=== PATIENT | female | born 1945 | race Caucasian/White ===

== ENCOUNTER → 2018-07-28 | Outpatient (CLI) | payer MEDICARE, BC ==
--- NOTE | 2018-07-28 16:28 | CT ---
EXAMINATION TYPE: CT chest w con DATE OF EXAM: 07/28/2018 COMPARISON: None HISTORY: abnormal cxr. hx of a-fib, asthma CT DLP: 508 mGycm Automated exposure control for dose reduction was used. CONTRAST: CT scan of the chest is performed with IV Contrast, patient injected with 100 mL of Isovue 300. FINDINGS: LUNGS: The lungs are grossly clear, there is no concerning parenchymal mass or nodule identified. T here is no pleural effusion or pneumothorax seen. The tracheobronchial tree is patent. Hyperinflatio n compatible with COPD. MEDIASTINUM: There are no greater than 1 cm hilar or mediastinal lymph nodes. No pericardial effusi on is seen. Thoracic aorta is of normal caliber. The heart is not enlarged. UPPER ABDOMEN: No significant abnormality appreciated. OTHER: No additional significant abnormality is seen. IMPRESSION: COPD otherwise unremarkable study.
== END | disposition home or self-care (01) ==
LOC: RADCTMAIN 15:14
PROVIDERS: ATTEND Internal Medicine
DX: J44.9 Chronic obstructive pulmonary disease, unspecified (principal)
CPT/HCPCS: 82565; 84520; 71260; 36415; Q9967

== ENCOUNTER 2020-01-24 07:26 | Day surgery (SDC) | payer MEDICARE, BC ==
[2020-01-21 11:12] VITALS: BMI 33.4
[~2020-01-24 07:26] MED LIST: SODIUM CHLORIDE 0.9% 1,000 ML IV SCH
[2020-01-24] MEDS ORDERED: CLINDAMYCIN 900 MG in DEXTROSE 5% IN WATER 50 ML IVPB ONE ×2 (07:30)
[2020-01-24] MEDS ORDERED: SODIUM CHLORIDE 0.9% 500 ML 500 ML IV ONE (08:03)
[2020-01-24 08:06] VITALS: RESP 16; TEMP 98
[2020-01-24] MEDS ORDERED: LIDOCAINE 1% INJ 10MG/ML (20 ML MDV) ONE (10:44)
[2020-01-24] MEDS ORDERED: IV FLUID CONTINUATION 1,000 ML IV ONE (10:53)
[2020-01-24] MEDS ORDERED: LIDOCAINE 1% INJ 10MG/ML (20 ML MDV) SQ ONE (11:00)
[2020-01-24] MEDS ORDERED: MIDAZOLAM 2 MG/2 ML VIAL IVP ONE (11:00)
[2020-01-24 12:54] VITALS: BP 123/74; PULSE 71
--- NOTE | 2020-01-24 17:39 | P.PCN ---
Preoperative Diagnosis: Diagnosis Recurrent presyncope and syncope History of pulmonary sarcoid History of paroxysmal atrial fibrillation History of systemic lupus and myasthenia gravis Twelve-lead EKG Sinus mechanism normal ND narrow QRS normal ST segments No delta waves no epsilon waves normal QT interval Tilt table test Baseline blood pressure 134/73 mmHg, Baseline heart rate 70 beats a minute Patient was tilted upright at an angle of 70 per protocol The patient had no symptoms, there was no change in heart rate and blood pressure At the end of the procedure she was laid supine Impression Normal twelve-lead ECG with normal cardiac intervals No evidence for dysautonomia No evidence for neurocardiogenic syncope Normal heart rate and blood pressure response to upright tilting Plan Proceed with implantation of a loop monitor
--- NOTE | 2020-01-24 17:40 | P.PRLE ---
RE: Kendra Hadley Dear Alexander Hadley has recurrent episodes of presyncope and syncope. She has known paroxysmal atrial fibrillation as well as pulmonary sarcoidosis I performed a tilt table test to evaluate for dysautonomia but she had a normal heart rate and blood pressure response to upright tilting. Therefore I proceed with implantation of a loop monitor to diagnoses the cause of her syncope I will send you a follow-up note if we detect any rhythm abnormalities that could explain her symptoms Thank you for entrusting me with the care of the patient Warm regards Sincerely Carlitos Short
--- NOTE | 2020-01-24 17:42 | P.PCN ---
Preoperative Diagnosis: Loop monitor implant Primary physicians: Dr. Alexander Duarte Biomedical Equipment Tech: Dr. Short Indication: Recurrent syncope and presyncope, normal tilt table test him a history of paroxysmal atrial fibrillation, history of pulmonary sarcoidosis Patient was brought to the EP lab in a fasting state. Written informed consent was obtained prior to the procedure. The left pectoral area was prepped and draped per protocol. Intravenous antibiotic was administered preoperatively. A subcutaneous Loop monitor was implanted successfully and the wound was closed per protocol. The device was programmed to detect significant bulmaro- arrhythmic and tachy-arrhythmic events, per protocol. Device and programming details: Syncope protocol Patient underwent EP procedure under conscious sedation/moderate sedation, monitoring of the level of consciousness and physiologic parameters including but not limited to vital signs and oxygenation. Patient tolerated the procedure well without any acute complications. Start time: 1059 Stop time: 1108
== END 2020-01-24 12:12 | disposition home or self-care (01) ==
LOC: CATHEP 07:26
PROVIDERS: ATTEND Internal Medicine Clinical Cardiac Electrophysiology
DX: R29.6 Repeated falls (principal); I48.0 Paroxysmal atrial fibrillation; M32.9 Systemic lupus erythematosus, unspecified; G70.00 Myasthenia gravis without (acute) exacerbation; D86.0 Sarcoidosis of lung; I10 Essential (primary) hypertension; E78.49 Other hyperlipidemia; Z82.49 Family history of ischemic heart disease and other diseases of the circulatory system; Z79.890 Hormone replacement therapy; Z79.01 Long term (current) use of anticoagulants; Z79.899 Other long term (current) drug therapy; Z88.5 Allergy status to narcotic agent; Z88.0 Allergy status to penicillin
CPT/HCPCS: 93660; 33285; C1764; J2250; J2001

== ENCOUNTER 2023-09-03 10:09 | Emergency (ER) | payer MEDICARE, OTHER ==
[2023-09-03 10:43] VITALS: TEMP 98.3
--- NOTE | 2023-09-03 10:44 | ED ---
General Adult HPI - General Chief complaint: Psychiatric Symptoms Stated complaint: Mental Health Time Seen by Provider: 09/03/23 10:15 Source: patient, RN notes reviewed, old records reviewed Mode of arrival: ambulatory Limitations: no limitations - History of Present Illness Initial comments: This is a 77-year-old female who presents to the emergency department because she wants to speak with someone from the psychiatric team. Patient states she has had her home taken away from her and she wants to prove that she is not mentally ill. Patient denies any homicidal or suicidal ideations. Patient denies seeing any abnormal findings. Patient denies any voices. Patient states she does not believe she was mentally ill. Patient states that she walked and she has been anxious and she has a lot of chest tightness. Patient has a history of atrial fibrillation is on Eliquis. Patient denies any difficulty breathing. Patient is any diaphoretic episode. Patient denies any heaviness or pressure she states is just a little bit of a tightness. Patient states she has had before. Patient denies any nausea or abdominal pain. - Related Data Home Medications Medication Instructions Recorded Confirmed Apixaban [Eliquis] 5 mg PO BID 01/21/20 09/03/23 DULoxetine HCL [Cymbalta] 30 mg PO HS 01/21/20 09/03/23 DULoxetine HCL [Cymbalta] 60 mg PO DAILY 01/21/20 09/03/23 Ivig 1 dose IV Q30D 01/21/20 09/03/23 Acetaminophen Tab [Tylenol Tab] 1,000 mg PO Q6HR PRN 09/03/23 09/03/23 Clopidogrel [Plavix] 75 mg PO DAILY 09/03/23 09/03/23 Fluticasone/Umeclidin/Vilanter 1 puff INHALATION RT-DAILY 09/03/23 09/03/23 [Trelegy Ellipta 200-62.5-25] HYDROcodone/APAP 5-325MG [[place] 0.5 tab PO BID PRN 09/03/23 09/03/23 5-325] Levothyroxine Sodium [Synthroid] 112 mcg PO AC-BRKFST 09/03/23 09/03/23 Metoprolol Tartrate [Lopressor] 25 mg PO TID 09/03/23 09/03/23 Pantoprazole [Protonix] 40 mg PO BID 09/03/23 09/03/23 Vit C/E/Zn/Coppr/Lutein/Zeaxan 2 cap PO DAILY 09/03/23 09/03/23 [Preservision Areds 2 Softgel] Allergies Allergy/AdvReac Type Severity Reaction Status Date / Time adhesive tape Allergy red Verified 09/03/23 12:26 skin,ok to use paper tape codeine Allergy Rash/Hives Verified 09/03/23 12:26 gabapentin Allergy tongue Verified 09/03/23 12:26 numbness Penicillins Allergy Rash/Hives Verified 09/03/23 12:26 quinine Allergy Unknown Verified 09/03/23 12:26 Sulfa (Sulfonamide Allergy Rash/Hives Verified 09/03/23 12:26 Antibiotics) aspirin AdvReac doesn't Verified 09/03/23 12:26 take with eliquis diphenhydramine AdvReac Unknown Verified 09/03/23 12:26 [From Benadryl] Review of Systems ROS Statement: Those systems with pertinent positive or pertinent negative responses have been documented in the HPI. ROS Other: All systems not noted in ROS Statement are negative. Past Medical History Past Medical History: Asthma, Respiratory Disorder, Syncope Additional Past Medical History / Comment(s): See Dr Short's H&P, [facility],admission approx September 2019 to [facility] pelvis after passing out with recent admission and discharge from [facility] on November or Dec 2019 ,Hx MYASTHENIA GRAVIS,LUPAS,SARCOID OF LUNG,AUTOIMMUME OF THE SKIN,HASHIMOTOS, 2 collapse vertabrae, urinary leakage. History of Any Multi-Drug Resistant Organisms: None Reported Past Surgical History: Cholecystectomy, Tonsillectomy Additional Past Surgical History / Comment(s): THROIDECTOMY, esophagus narrowing/had procedure to stretch jan 2018 Past Anesthesia/Blood Transfusion Reactions: Motion Sickness Past Psychological History: Depression Smoking Status: Never smoker - Past Family History Father Family Medical History: CVA/TIA Additional Family Medical History / Comment(s): at age 37 w/ CVA Mother Family Medical History: Congestive Heart Failure (CHF), Osteoarthritis (OA) Additional Family Medical History / Comment(s): at age 82 General Exam - General Exam Comments Initial Comments: GENERAL: Patient is well-developed and well-nourished. Patient is nontoxic and well- hydrated and is in no acute distress. ENT: Neck is soft and supple. No significant lymphadenopathy is noted. Oropharynx is clear. Moist mucous membranes. Neck has full range of motion without eliciting any pain. EYES: The sclera were anicteric and conjunctiva were pink and moist. Extraocular movements were intact and pupils were equal round and reactive to light. Eyelids were unremarkable. PULMONARY: Unlabored respirations. Good breath sounds bilaterally. No audible rales rhonchi or wheezing was noted. CARDIOVASCULAR: There is a regular rate and rhythm without any murmurs gallops or rubs. ABDOMEN: Soft and nontender with normal bowel sounds. SKIN: Skin is clear with no lesions or rashes and otherwise unremarkable. NEUROLOGIC: Patient is alert and oriented x3. Cranial nerves II through XII are grossly intact. Motor and sensory are also intact. Normal speech, volume and content. Symmetrical smile. MUSCULOSKELETAL: Normal extremities with adequate strength and full range of motion. LYMPHATICS: No significant lymphadenopathy is noted PSYCHIATRIC: Normal psychiatric evaluation. Limitations: no limitations Course Vital Signs 09/03/23 09/03/23 09/03/23 10:11 11:13 11:14 Temperature 98.3 F Pulse Rate 74 68 75 Respiratory 16 18 18 Rate Blood Pressure 137/71 126/68 126/68 O2 Sat by Pulse 95 94 L 95 Oximetry 09/03/23 09/03/23 09/03/23 11:30 12:00 12:30 Temperature Pulse Rate 68 65 68 Respiratory 22 18 Rate Blood Pressure 118/72 107/62 109/67 O2 Sat by Pulse Oximetry 09/03/23 09/03/23 13:00 13:30 Temperature Pulse Rate 70 71 Respiratory 18 17 Rate Blood Pressure 115/71 141/79 O2 Sat by Pulse 95 Oximetry Medical Decision Making - Medical Decision Making EKG is interpreted by myself read EKG shows a sinus rhythm at 65 bpm parables 176 QRS is 84 QT interval 389 QTc is 400. Patient's EKG shows no ST segment ovation or depression. Was pt. sent in by a medical professional or institution (, PA, [employer], urgent care, hospital, or group home...) When possible be specific @ -Patient was brought in by a business banking representative of the guardian Did you speak to anyone other than the patient for history (EMS, parent, family, police, friend...)? What history was obtained from this source @ -Manager Of Transportation regarding gave some of the history as did the patient Did you review nursing and triage notes (agree or disagree)? Why? @ -I reviewed and agree with nursing and triage notes Were old charts reviewed (outside hosp., previous admission, EMS record, old EKG, old radiological studies, urgent care reports/EKG's, group home records)? Report findings @ -No old charts were reviewed Differential Diagnosis (chest pain, altered mental status, abdominal pain women, abdominal pain men, vaginal bleeding, weakness, fever, dyspnea, syncope, headache, dizziness, GI bleed, back pain, seizure, CVA, palpatations, mental health, musculoskeletal)? @ -Differential Mental Health Depression, anxiety, bipolar, psychosis, schizophrenia, borderline personality, situational depression, adjustment disorder, behavioral disorder, brain tumor, malingering, substance abuse, encephalopathy, medication reaction, dementia, hypothyroidism, degenerative neurologic disorder, lupus.... This is not meant to be all-inclusive list EKG interpreted by me (3pts min.). @ -As above X-rays interpreted by me (1pt min.). @ -None done CT interpreted by me (1pt min.). @ -None done U/S interpreted by me (1pt. min.). @ -None done What testing was considered but not performed or refused? (CT, X-rays, U/S, labs)? Why? @ -None What meds were considered but not given or refused? Why? @ -None Did you discuss the management of the patient with other professionals (professionals i.e. , PA, [employer], lab, RT, psych nurse, social service manager, psychological operations specialist, teacher, special technical operations officer, spring encaser)? Give summary @ -I spoke with EPS. EPS agrees to patient to be discharged home. Was smoking cessation discussed for >3mins.? @ -No Was critical care preformed (if so, how long)? @ -No Were there social determinants of health that impacted care today? How? (Homelessness, low income, unemployed, alcoholism, drug addiction, transportation, low edu. Level, literacy, decrease access to med. care, penitentiary, rehab)? @ -No Was there de-escalation of care discussed even if they declined (Discuss DNR or withdrawal of care, Hospice)? DNR status @ -No What co-morbidities impacted this encounter? (DM, HTN, Smoking, COPD, CAD, Cancer, CVA, ARF, Chemo, Hep., AIDS, mental health diagnosis, sleep apnea, morbid obesity)? @ -None Was patient admitted / discharged? Hospital course, mention meds given and route, prescriptions, significant lab abnormalities, going to OR and other pertinent info. @ -Patient was initially evaluated by me and medically cleared her chest tightness resolved after her anxiety decreased she stated. Patient's evaluated by EPS and EPS with psychiatry determined the patient did not need to be a dmitted. Undiagnosed new problem with uncertain prognosis? @ -No Drug Therapy requiring intensive monitoring for toxicity (Heparin, Nitro, Insulin, Cardizem)? @ -No Were any procedures done? @ -No Diagnosis/symptom? @ -Chest tightness Acute, or Chronic, or Acute on Chronic? @ -Acute Uncomplicated (without systemic symptoms) or Complicated (systemic symptoms)? @ -Complicated Side effects of treatment? @ -No Exacerbation, Progression, or Severe Exacerbation? @ -No Poses a threat to life or bodily function? How? (Chest pain, [place], [place], pneumonia, PE, COPD, DKA, ARF, appy, cholecystitis, CVA, Diverticulitis, Homicidal, Suicidal, threat to staff... and all critical care pts) @ -No Diagnosis/symptom? @ -Normal psych evaluation Acute, or Chronic, or Acute on Chronic? @ -None Uncomplicated (without systemic symptoms) or Complicated (systemic symptoms)? @ -Uncomplicated Side effects of treatment? @ -None Exacerbation, Progression, or Severe Exacerbation] @ -No Poses a threat to life or bodily function? @ -No - Lab Data Result diagrams: 09/03/23 10:51 09/03/23 10:51 Lab Results 09/03/23 09/03/23 09/03/23 Range/Units 10:51 10:51 10:51 WBC 7.3 (3.8-10.6) k/uL RBC 4.18 (3.80-5.40) m/uL Hgb 12.1 (11.4-16.0) gm/dL Hct 38.0 (34.0-46.0) % MCV 91.1 (80.0-100.0) fL MCH 28.9 (25.0-35.0) pg MCHC 31.7 (31.0-37.0) g/dL RDW 14.4 (11.5-15.5) % Plt Count 246 (150-450) k/uL MPV 8.7 Neutrophils % 87 % Lymphocytes % 7 % Monocytes % 5 % Eosinophils % 0 % Basophils % 0 % Neutrophils # 6.3 (1.3-7.7) k/uL Lymphocytes # 0.5 L (1.0-4.8) k/uL Monocytes # 0.3 (0-1.0) k/uL Eosinophils # 0.0 (0-0.7) k/uL Basophils # 0.0 (0-0.2) k/uL PT 10.9 (10.0-12.5) sec INR 1.0 (<1.2) APTT 24.8 (22.0-30.0) sec Sodium (137-145) mmol/L Potassium (3.5-5.1) mmol/L Chloride (98-107) mmol/L Carbon Dioxide (22-30) mmol/L Anion Gap mmol/L BUN (7-17) mg/dL Creatinine (0.52-1.04) mg/dL Est GFR (CKD-EPI)AfAm (>60 ml/min/1.73 sqM) Est GFR (CKD-EPI)NonAf (>60 ml/min/1.73 sqM) Glucose (74-99) mg/dL Calcium (8.4-10.2) mg/dL Magnesium (1.6-2.3) mg/dL Total Bilirubin (0.2-1.3) mg/dL AST (14-36) U/L ALT (4-34) U/L Alkaline Phosphatase (38-126) U/L Troponin I (0.000-0.034) ng/mL Total Protein (6.3-8.2) g/dL Albumin (3.5-5.0) g/dL Urine Opiates Screen Not Detected (NotDetected) Ur Oxycodone Screen Not Detected (NotDetected) Urine Methadone Screen Not Detected (NotDetected) Ur Barbiturates Screen Not Detected (NotDetected) U Tricyclic Antidepress Not Detected (NotDetected) Ur Phencyclidine Scrn Not Detected (NotDetected) Ur Amphetamines Screen Not Detected (NotDetected) U Methamphetamines Scrn Not Detected (NotDetected) U Benzodiazepines Scrn Not Detected (NotDetected) Urine Cocaine Screen Not Detected (NotDetected) U Marijuana (THC) Screen Not Detected (NotDetected) 09/03/23 09/03/23 Range/Units 10:51 10:51 WBC (3.8-10.6) k/uL RBC (3.80-5.40) m/uL Hgb (11.4-16.0) gm/dL Hct (34.0-46.0) % MCV (80.0-100.0) fL MCH (25.0-35.0) pg MCHC (31.0-37.0) g/dL RDW (11.5-15.5) % Plt Count (150-450) k/uL MPV Neutrophils % % Lymphocytes % % Monocytes % % Eosinophils % % Basophils % % Neutrophils # (1.3-7.7) k/uL Lymphocytes # (1.0-4.8) k/uL Monocytes # (0-1.0) k/uL Eosinophils # (0-0.7) k/uL Basophils # (0-0.2) k/uL PT (10.0-12.5) sec INR (<1.2) APTT (22.0-30.0) sec Sodium 139 (137-145) mmol/L Potassium 4.6 (3.5-5.1) mmol/L Chloride 107 (98-107) mmol/L Carbon Dioxide 27 (22-30) mmol/L Anion Gap 5 mmol/L BUN 14 (7-17) mg/dL Creatinine 0.63 (0.52-1.04) mg/dL Est GFR (CKD-EPI)AfAm >90 (>60 ml/min/1.73 sqM) Est GFR (CKD-EPI)NonAf 86 (>60 ml/min/1.73 sqM) Glucose 99 (74-99) mg/dL Calcium 8.7 (8.4-10.2) mg/dL Magnesium 1.9 (1.6-2.3) mg/dL Total Bilirubin 0.4 (0.2-1.3) mg/dL AST 28 (14-36) U/L ALT 18 (4-34) U/L Alkaline Phosphatase 91 (38-126) U/L Troponin I <0.012 (0.000-0.034) ng/mL Total Protein 6.8 (6.3-8.2) g/dL Albumin 4.0 (3.5-5.0) g/dL Urine Opiates Screen (NotDetected) Ur Oxycodone Screen (NotDetected) Urine Methadone Screen (NotDetected) Ur Barbiturates Screen (NotDetected) U Tricyclic Antidepress (NotDetected) Ur Phencyclidine Scrn (NotDetected) Ur Amphetamines Screen (NotDetected) U Methamphetamines Scrn (NotDetected) U Benzodiazepines Scrn (NotDetected) Urine Cocaine Screen (NotDetected) U Marijuana (THC) Screen (NotDetected) Disposition Clinical Impression: Chest tightness, Evaluation by psychiatric service required Disposition: HOME SELF-CARE Condition: Good Instructions (If sedation given, give patient instructions): Anxiety (ED) Is patient prescribed a controlled substance at d/c from ED?: No Referrals: None,Stated [Primary Care Provider] - 1-2 days Time of Disposition: 14:46
[2023-09-03 11:17] LABS: Basophils % (A) 0 %; Eosinophils % (A) 0 %; HGB 12.1 gm/dL (11.4-16.0); Lymphocytes # (A) 0.5 k/uL (1.0-4.8); Lymphocytes % (A) 7 %; MCH 28.9 pg (25.0-35.0); MCHC 31.7 g/dL (31.0-37.0); MCV 91.1 fL (80.0-100.0); Mean Platelet Volume 8.7; Monocytes # (A) 0.3 k/uL (0-1.0); Monocytes % (A) 5 %; Neutrophils # (A) 6.3 k/uL (1.3-7.7); Neutrophils % (A) 87 %; Platelet Count 246 k/uL (150-450); RBC 4.18 m/uL (3.80-5.40); RDW 14.4 % (11.5-15.5); WBC 7.3 k/uL (3.8-10.6)
[2023-09-03 11:25] LABS: Partial Thromboplastin Time 24.8 sec (22.0-30.0); Prothrombin Time 10.9 sec (10.0-12.5)
[2023-09-03 11:27] LABS: ALT 18 U/L (4-34); AST 28 U/L (14-36); African American GFR (CKD) >90 (>60 ml/min/1.73 sqM); Alkaline Phosphatase 91 U/L (38-126); Anion Gap 5 mmol/L; Blood Urea Nitrogen 14 mg/dL (7-17); Calcium 8.7 mg/dL (8.4-10.2); Carbon Dioxide 27 mmol/L (22-30); Chloride 107 mmol/L (98-107); Glucose 99 mg/dL (74-99); Magnesium 1.9 mg/dL (1.6-2.3); Non-African American GFR(CKD) 86 (>60 ml/min/1.73 sqM); Potassium 4.6 mmol/L (3.5-5.1); Sodium 139 mmol/L (137-145); Total Bilirubin 0.4 mg/dL (0.2-1.3); Total Protein 6.8 g/dL (6.3-8.2)
--- NOTE | 2023-09-03 11:27 | XR ---
EXAMINATION TYPE: XR chest 2V DATE OF EXAM: 09/03/2023 COMPARISON: 04/17/2016 TECHNIQUE: PA and lateral views submitted. HISTORY: Chest pain FINDINGS: The lungs are clear and there is no pneumothorax, pleural effusion, or focal pneumonia. Heart size normal and no overt failure. Osseous structures demonstrate hypertrophic and degenerative changes of the spine. Loop recorder device is seen and there are subsegmental changes at both lung bases. Diffus e osteopenia and arthropathy of the shoulders. Severe compression deformity thoracolumbar spine with vertebroplasty. Underlying COPD suspected. IMPRESSION: 1. No acute process.
[2023-09-03 11:50] LABS: Amphetamine Screen,Urine Not Detected (NotDetected); Barbiturate Screen,Urine Not Detected (NotDetected); Benzodiazepines Screen,Urine Not Detected (NotDetected); Cocaine Screen,Urine Not Detected (NotDetected); Methadone Screen, Urine Not Detected (NotDetected); Opiate Screen,Urine Not Detected (NotDetected); Oxycodone Screen, Urine Not Detected (NotDetected); Phencyclidine Screen,Urine Not Detected (NotDetected); Tricyclic Antidepressant,Urine Not Detected (NotDetected); Urn Cannabinoid Scrn Not Detected (NotDetected)
[2023-09-03 15:13] VITALS: BP 117/91; PULSE 70; RESP 18
== END 2023-09-03 15:11 | disposition home or self-care (01) ==
LOC: EC 10:09
DX: Z13.39 Encounter for screening examination for other mental health and behavioral disorders (principal); R07.89 Other chest pain; I48.91 Unspecified atrial fibrillation; Z79.01 Long term (current) use of anticoagulants; Z88.0 Allergy status to penicillin; Z88.5 Allergy status to narcotic agent; Z88.8 Allergy status to other drugs, medicaments and biological substances; Z88.2 Allergy status to sulfonamides; Z88.6 Allergy status to analgesic agent; Z91.09 Other allergy status, other than to drugs and biological substances
CPT/HCPCS: 36415; 71046; 80053; 80306; 82075; 83735; 84484; 85025; 85610; 85730; 93005; 99285

== ENCOUNTER 2023-09-04 12:01 | Emergency (ER) | payer MEDICARE, OTHER ==
[2023-09-04] MEDS: METOPROLOL TARTRATE 25 MG TAB PO STA (12:33)
--- NOTE | 2023-09-04 12:38 | ED ---
General Adult HPI - General Chief complaint: Dizziness Stated complaint: Chest pain Time Seen by Provider: 09/04/23 12:05 Source: patient, RN notes reviewed, old records reviewed Mode of arrival: wheelchair Limitations: physical limitation - History of Present Illness Initial comments: This is a 77-year-old female presents to the emergency department stating that she was in the emergency department yesterday and no one tested her urine and she has a little discomfort when she urinates that she would like it tested. Patient also states she thinks she left her blood pressure medications here but no one can find them and so she does not feel right when she does not have her blood pressure medications. Patient states her heart rate is a little faster than normal because she does not have her blood pressure medications. Patient states she takes Lopressor 25 mg 3 times daily. Patient denies any chest pain patient denies any difficulty breathing shortness of breath. Patient has any recent fever chills or cough or patient has any abdominal pain patient has nausea vomiting diarrhea. Patient states she does not really feel dizzy but she does not feel right because she did not take her medicines - Related Data Home Medications Medication Instructions Recorded Confirmed Apixaban [Eliquis] 5 mg PO BID 01/21/20 09/04/23 DULoxetine HCL [Cymbalta] 30 mg PO HS 01/21/20 09/04/23 DULoxetine HCL [Cymbalta] 60 mg PO DAILY 01/21/20 09/04/23 Ivig 1 dose IV Q30D 01/21/20 09/04/23 Acetaminophen Tab [Tylenol Tab] 1,000 mg PO Q6HR PRN 09/03/23 09/04/23 Clopidogrel [Plavix] 75 mg PO DAILY 09/03/23 09/04/23 Fluticasone/Umeclidin/Vilanter 1 puff INHALATION RT-DAILY 09/03/23 09/04/23 [Trelegy Ellipta 200-62.5-25] HYDROcodone/APAP 5-325MG [[place] 0.5 tab PO BID PRN 09/03/23 09/04/23 5-325] Levothyroxine Sodium [Synthroid] 112 mcg PO AC-BRKFST 09/03/23 09/04/23 Metoprolol Tartrate [Lopressor] 25 mg PO TID 09/03/23 09/04/23 Pantoprazole [Protonix] 40 mg PO BID 09/03/23 09/04/23 Vit C/E/Zn/Coppr/Lutein/Zeaxan 2 cap PO DAILY 09/03/23 09/04/23 [Preservision Areds 2 Softgel] Previous Rx's Medication Instructions Recorded Metoprolol Tartrate [Lopressor] 25 mg PO TID #90 tablet 09/04/23 Allergies Allergy/AdvReac Type Severity Reaction Status Date / Time adhesive tape Allergy red Verified 09/04/23 12:57 skin,ok to use paper tape codeine Allergy Rash/Hives Verified 09/04/23 12:57 gabapentin Allergy tongue Verified 09/04/23 12:57 numbness Penicillins Allergy Rash/Hives Verified 09/04/23 12:57 quinine Allergy Unknown Verified 09/04/23 12:57 Sulfa (Sulfonamide Allergy Rash/Hives Verified 09/04/23 12:57 Antibiotics) aspirin AdvReac doesn't Verified 09/04/23 12:57 take with eliquis diphenhydramine AdvReac Unknown Verified 09/04/23 12:57 [From Benadryl] Review of Systems ROS Statement: Those systems with pertinent positive or pertinent negative responses have been documented in the HPI. ROS Other: All systems not noted in ROS Statement are negative. Past Medical History Past Medical History: Asthma, Respiratory Disorder, Syncope Additional Past Medical History / Comment(s): See Dr Short's H&P, [facility],admission approx September 2019 to [facility] pelvis after passing out with recent admission and discharge from [facility] on November or Dec 2019 ,Hx MYASTHENIA GRAVIS,LUPAS,SARCOID OF LUNG,AUTOIMMUME OF THE SKIN,HASHIMOTOS, 2 collapse vertabrae, urinary leakage. History of Any Multi-Drug Resistant Organisms: None Reported Past Surgical History: Cholecystectomy, Tonsillectomy Additional Past Surgical History / Comment(s): THROIDECTOMY, esophagus narrowing/had procedure to stretch jan 2018 Past Anesthesia/Blood Transfusion Reactions: Motion Sickness Past Psychological History: Depression Smoking Status: Never smoker - Past Family History Father Family Medical History: CVA/TIA Additional Family Medical History / Comment(s): at age 37 w/ CVA Mother Family Medical History: Congestive Heart Failure (CHF), Osteoarthritis (OA) Additional Family Medical History / Comment(s): at age 82 General Exam - General Exam Comments Initial Comments: GENERAL: Patient is well-developed and well-nourished. Patient is nontoxic and well- hydrated and is in mild distress. ENT: Neck is soft and supple. No significant lymphadenopathy is noted. Oropharynx is clear. Moist mucous membranes. Neck has full range of motion without eliciting any pain. EYES: The sclera were anicteric and conjunctiva were pink and moist. Extraocular movements were intact and pupils were equal round and reactive to light. Eyelids were unremarkable. PULMONARY: Unlabored respirations. Good breath sounds bilaterally. No audible rales r honchi or wheezing was noted. CARDIOVASCULAR: There is a regular rate and rhythm without any murmurs gallops or rubs. ABDOMEN: Soft and nontender with normal bowel sounds. SKIN: Skin is clear with no lesions or rashes and otherwise unremarkable. NEUROLOGIC: Patient is alert and oriented x3. Cranial nerves II through XII are grossly intact. Motor and sensory are also intact. Normal speech, volume and content. Symmetrical smile. MUSCULOSKELETAL: Normal extremities with adequate strength and full range of motion. LYMPHATICS: No significant lymphadenopathy is noted PSYCHIATRIC: Normal psychiatric evaluation. Limitations: physical limitation Course Vital Signs 09/04/23 09/04/23 09/04/23 12:03 12:27 12:32 Temperature 97.5 F L Pulse Rate 101 H 85 Pulse Rate [ 92 Roller Mechanic ] Respiratory 16 18 Rate Blood Pressure 144/79 139/89 O2 Sat by Pulse 97 98 Oximetry Medical Decision Making - Medical Decision Making EKG is interpreted by myself but EKG is a sinus rhythm at 79 bpm WI 168 QRS is 86 QT interval 352 QTc is 387. Patient's EKG shows no ST segment ovation or depression. Was pt. sent in by a medical professional or institution (, PA, CERTIFIED INDUSTRIAL HYGIENIST, urgent care, hospital, or custodial...) When possible be specific @ -No Did you speak to anyone other than the patient for history (EMS, parent, family, police, friend...)? What history was obtained from this source @ -No Did you review nursing and triage notes (agree or disagree)? Why? @ -I reviewed and agree with nursing and triage notes Were old charts reviewed (outside hosp., previous admission, EMS record, old EKG, old radiological studies, urgent care reports/EKG's, custodial records)? Report findings @ -I reviewed yesterday's chart and lab work. It showed no acute abnormalities I did compare today's EKG with yesterday's EKG there was no new changes. Differential Diagnosis (chest pain, altered mental status, abdominal pain women, abdominal pain men, vaginal bleeding, weakness, fever, dyspnea, syncope, headache, dizziness, GI bleed, back pain, seizure, CVA, palpatations, mental health, musculoskeletal)? @ -Tachycardia, anxiety, noncompliant with meds, urinary tract infection, this is not an all-inclusive list EKG interpreted by me (3pts min.). @ -As above X-rays interpreted by me (1pt min.). @ -None done CT interpreted by me (1pt min.). @ -None done U/S interpreted by me (1pt. min.). @ -None done What testing was considered but not performed or refused? (CT, X-rays, U/S, labs)? Why? @ -None What meds were considered but not given or refused? Why? @ -None Did you discuss the management of the patient with other professionals (professionals i.e. , PA, CERTIFIED INDUSTRIAL HYGIENIST, lab, RT, psych nurse, social and political studies professor, attorney lawyer, teacher, animal park code enforcement officer, manager of case)? Give summary @ -No Was smoking cessation discussed for >3mins.? @ -No Was critical care preformed (if so, how long)? @ -No Were there social determinants of health that impacted care today? How? (Homelessness, low income, unemployed, alcoholism, drug addiction, transportatio n, low edu. Level, literacy, decrease access to med. care, fci, rehab)? @ -No Was there de-escalation of care discussed even if they declined (Discuss DNR or withdrawal of care, Hospice)? DNR status @ -No What co-morbidities impacted this encounter? (DM, HTN, Smoking, COPD, CAD, Cancer, CVA, ARF, Chemo, Hep., AIDS, mental health diagnosis, sleep apnea, morbid obesity)? @ -None Was patient admitted / discharged? Hospital course, mention meds given and route, prescriptions, significant lab abnormalities, going to OR and other pertinent info. @ -Patient was given metoprolol 25 mg. Patient will be given a prescription to go home with. Patient has no symptoms at this time. Patient's urine showed no infection. Undiagnosed new problem with uncertain prognosis? @ -No Drug Therapy requiring intensive monitoring for toxicity (Heparin, Nitro, Insulin, Cardizem)? @ -No Were any procedures done? @ -No Diagnosis/symptom? @ -Hypertension Acute, or Chronic, or Acute on Chronic? @ -Chronic Uncomplicated (without systemic symptoms) or Complicated (systemic symptoms)? @ -Uncomplicated Side effects of treatment? @ -No Exacerbation, Progression, or Severe Exacerbation? @ -No Poses a threat to life or bodily function? How? (Chest pain, [place], [place], pneumonia, PE, COPD, DKA, ARF, appy, cholecystitis, CVA, Diverticulitis, Homicidal, Suicidal, threat to staff... and all critical care pts) @ -No - Lab Data Lab Results 09/04/23 Range/Units 12:31 Urine Color Light Yellow Urine Appearance Clear (Clear) Urine pH 6.0 (5.0-8.0) Ur Specific [place] 1.017 (1.001-1.035) Urine Protein Negative (Negative) Urine Glucose (UA) Negative (Negative) Urine Ketones Negative (Negative) Urine Blood Negative (Negative) Urine Nitrite Negative (Negative) Urine Bilirubin Negative (Negative) Urine Urobilinogen <2.0 (<2.0) mg/dL Ur Leukocyte Esterase Small H (Negative) Urine RBC <1 (0-5) /hpf Urine WBC 3 (0-5) /hpf Urine Mucus Rare H (None) /hpf Disposition Clinical Impression: Dysuria, Hypertension Disposition: HOME SELF-CARE Condition: Good Instructions (If sedation given, give patient instructions): Hypertension (ED) Prescriptions: Metoprolol Tartrate [Lopressor] 25 mg PO TID #90 tablet Is patient prescribed a controlled substance at d/c from ED?: No Referrals: None,Stated [Primary Care Provider] - 1-2 days Time of Disposition: 14:09
[2023-09-04 12:41] LABS: Appearance,Urine Clear (Clear); Bilirubin,Urine Negative (Negative); Blood,Urine Negative (Negative); Color,Urine Light Yellow; Glucose,Urine (UA) Negative (Negative); Ketones,Urine Negative (Negative); Leukocyte Esterase,Urine Small (Negative); Mucus,Urine Rare /hpf; Nitrite,Urine Negative (Negative); Protein,Urine Negative (Negative); RBC,Urine <1 /hpf (0-5); Specific Gravity,Urine 1.017 (1.001-1.035); Urobilinogen,Urine <2.0 mg/dL (<2.0); WBC,Urine 3 /hpf (0-5)
[2023-09-04 13:07] VITALS: RESP 18
[2023-09-04 17:18] VITALS: BP 134/76; PULSE 78; TEMP 98
== END 2023-09-04 15:00 | disposition home or self-care (01) ==
LOC: EC 12:01
DX: I10 Essential (primary) hypertension (principal); R30.0 Dysuria; Z88.5 Allergy status to narcotic agent; Z88.0 Allergy status to penicillin; Z88.2 Allergy status to sulfonamides; Z88.8 Allergy status to other drugs, medicaments and biological substances
CPT/HCPCS: 81001; 93005; 99284

== ENCOUNTER 2023-09-19 19:41 | Observation (INO) | payer MEDICARE, OTHER ==
--- NOTE | 2023-09-19 20:51 | ED ---
General Adult HPI - General Source: patient Mode of arrival: ambulatory Limitations: no limitations <Imelda Bell - Last Filed: 09/19/23 20:50> <Arley Steele - Last Filed: 09/20/23 02:50> - General Stated complaint: weakness Time Seen by Provider: 09/19/23 20:50 - History of Present Illness Initial comments: 77-year-old female presenting with chief complaint of nausea vomiting and weakness. She is concerned that this is a flare up of her myasthenia gravis. (Imelda Bell) Dictation was produced using TEE[employer] dictation software. please excuse any grammatical, word or spelling errors. Chief Complaint: 77-year-old female with history of myasthenia's gravis presents to the emergency department for concerns of gravis attack History of Present Illness: 69-year-old female was recently seen in the em ergency department. Patient allegedly was here recently for diarrhea. She is discharged home. Patient returns to the emergency department because she is worried she is having another myasthenia gravis attack. States that she is always admitted at [facility] every time she shows up. She has had IVIG in the past. Patient feels like she is having a myasthenia gravis attack because she feels like her left eye is droopy. Patient has no other complaints at this time. The ROS documented in this emergency department record has been reviewed and confirmed by me. Those systems with pertinent positive or negative responses have been documented in the HPI. All other systems are other negative and/or noncontributory. (Arley Steele) - Related Data Home Medications Medication Instructions Recorded Confirmed Apixaban [Eliquis] 5 mg PO BID 01/21/20 09/04/23 DULoxetine HCL [Cymbalta] 30 mg PO HS 01/21/20 09/04/23 DULoxetine HCL [Cymbalta] 60 mg PO DAILY 01/21/20 09/04/23 Ivig 1 dose IV Q30D 01/21/20 09/04/23 Acetaminophen Tab [Tylenol Tab] 1,000 mg PO Q6HR PRN 09/03/23 09/04/23 Clopidogrel [Plavix] 75 mg PO DAILY 09/03/23 09/04/23 Fluticasone/Umeclidin/Vilanter 1 puff INHALATION RT-DAILY 09/03/23 09/04/23 [Trelegy Ellipta 200-62.5-25] HYDROcodone/APAP 5-325MG [[place] 0.5 tab PO BID PRN 09/03/23 09/04/23 5-325] Levothyroxine Sodium [Synthroid] 112 mcg PO AC-BRKFST 09/03/23 09/04/23 Metoprolol Tartrate [Lopressor] 25 mg PO TID 09/03/23 09/04/23 Pantoprazole [Protonix] 40 mg PO BID 09/03/23 09/04/23 Vit C/E/Zn/Coppr/Lutein/Zeaxan 2 cap PO DAILY 09/03/23 09/04/23 [Preservision Areds 2 Softgel] Previous Rx's Medication Instructions Recorded Metoprolol Tartrate [Lopressor] 25 mg PO TID #90 tablet 09/04/23 Allergies Allergy/AdvReac Type Severity Reaction Status Date / Time adhesive tape Allergy red Verified 09/19/23 20:53 skin,ok to use paper tape codeine Allergy Rash/Hives Verified 09/19/23 20:53 gabapentin Allergy tongue Verified 09/19/23 20:53 numbness Penicillins Allergy Rash/Hives Verified 09/19/23 20:53 quinine Allergy Unknown Verified 09/19/23 20:53 Sulfa (Sulfonamide Allergy Rash/Hives Verified 09/19/23 20:53 Antibiotics) aspirin AdvReac doesn't Verified 09/19/23 20:53 take with eliquis digoxin AdvReac Rapid Verified 09/19/23 20:53 Heart Rate diphenhydramine AdvReac Unknown Verified 09/19/23 20:53 [From Benadryl] Review of Systems ROS Other: All systems not noted in ROS Statement are negative. <Imelda Bell - Last Filed: 09/19/23 20:50> ROS Other: All systems not noted in ROS Statement are negative. <Arley Steele - Last Filed: 09/20/23 02:50> ROS Statement: Those systems with pertinent positive or pertinent negative responses have been documented in the HPI. Past Medical History Past Medical History: Asthma, Respiratory Disorder, Syncope Additional Past Medical History / Comment(s): See Dr Short's H&P, marcello falls,admission approx September 2019 to [facility] pelvis after passing out with recent admission and discharge from [facility] on November or Dec 2019 ,Hx MYASTHENIA GRAVIS,LUPAS,SARCOID OF LUNG,AUTOIMMUME OF THE SKIN,HASHIMOTOS, 2 collapse vertabrae, urinary leakage. History of Any Multi-Drug Resistant Organisms: None Reported Past Surgical History: Cholecystectomy, Tonsillectomy Additional Past Surgical History / Comment(s): THROIDECTOMY, esophagus narrowing/had procedure to stretch jan 2018 Past Anesthesia/Blood Transfusion Reactions: Motion Sickness Past Psychological History: Depression Smoking Status: Never smoker - Past Family History Father Family Medical History: CVA/TIA Additional Family Medical History / Comment(s): at age 37 w/ CVA Mother Family Medical History: Congestive Heart Failure (CHF), Osteoarthritis (OA) Additional Family Medical History / Comment(s): at age 82 <Imelda Bell - Last Filed: 09/19/23 20:50> General Exam <Imelda Bell - Last Filed: 09/19/23 20:50> <Arley Steele - Last Filed: 09/20/23 02:50> - General Exam Comments Initial Comments: Visual Physical Exam Vital signs reviewed General: Well-appearing, nontoxic, no acute distress. Head: Normocephalic, atraumatic Eyes: PERRLA, EOMI ENT: Airway patent Chest: Nonlabored breathing Skin: No visual rash, normal skin tone Neuro: Alert and oriented 3 Musculoskeletal: No gross abnormalities (Imelda Bell) PHYSICAL EXAM: General Impression: Alert and oriented x3, not in acute distress HEENT: Normocephalic atraumatic, extra-ocular movements intact, pupils equal and reactive to light bilaterally, mucous membranes moist. Cardiovascular: Heart regular rate and rhythm Chest: Able to complete full sentences, no retractions, no tachypnea Abdomen: abdomen soft, non-tender, non-distended, no organomegaly Musculoskeletal: Pulses present and equal in all extremities, no peripheral edema Motor: no focal deficits noted Neurological: CN II-XII grossly intact, no focal motor or sensory deficits noted Skin: Intact with no visualized rashes Psych: Normal affect and mood (Arley Steele) Course Vital Signs 09/19/23 09/19/23 09/20/23 20:49 22:53 01:49 Temperature 97.7 F 97.9 F Pulse Rate 111 H 69 87 Respiratory 18 18 17 Rate Blood Pressure 127/82 121/72 97/70 O2 Sat by Pulse 96 98 96 Oximetry Medical Decision Making <Imelda Bell - Last Filed: 09/19/23 20:50> - Lab Data Result diagrams: 09/19/23 22:53 09/19/23 22:53 <Arley Steele - Last Filed: 09/20/23 02:50> - Medical Decision Making I performed the quick note portion of this visit, electronically signed Imelda Bell PA-C (Imelda Bell) Was pt. sent in by a medical professional or institution (GHULAM Arredondo, FIRE EQUIPMENT OPERATOR, urgent care, hospital, or long-term...) When possible be specific @ -No Did you speak to anyone other than the patient for history (EMS, parent, family, police, friend...)? What history was obtained from this source @ -No Did you review nursing and triage notes (agree or disagree)? Why? @ -I reviewed and agree with nursing and triage notes Were old charts reviewed (outside hosp., previous admission, EMS record, old EKG, old radiological studies, urgent care reports/EKG's, long-term records)? Report findings @ -No old charts were reviewed Differential Diagnosis (chest pain, altered mental status, abdominal pain women, abdominal pain men, vaginal bleeding, musculoskeletal, weakness, fever, dyspnea, syncope, headache, dizziness, GI bleed, back pain, seizure, CVA, palpatations, mental health)? @ -Differential Weakness: Hypoglycemia, shock, sepsis, hyponatremia, anemia, infection, CT, ETOH, adverse medicine reaction, overdose, stroke, this is not meant to be an all-inclusive li st. EKG interpreted by me (3pts min.). @ -My EKG interpretation: Ventricular rate 92, sinus rhythm,. 175, QRS 86, QTc 4 2. No IA prolongation, no QTC prolongation, no ST or T-wave changes noted. O prasad, this EKG is unremarkable X-rays interpreted by me (1pt min.). @ -Chest x-ray shows no acute processes CT interpreted by me (1pt min.). @ -None done U/S interpreted by me (1pt. min.). @ -None done What testing was considered but not performed or refused? (CT, X-rays, U/S, labs)? Why? @ -None What meds were considered but not given or refused? Why? @ -None Did you discuss the management of the patient with other professionals (professionals i.e. , PA, FIRE EQUIPMENT OPERATOR, lab, RT, psych nurse, criminal justice social worker, agriculture consultant, teacher, ordnance officer, housing case manager)? Give summary @ -Case discussed with hospitalist for admission Was smoking cessation discussed for >3mins.? @ -No Was critical care preformed (if so, how long)? @ -No Were there social determinants of health that impacted care today? How? (Homelessness, low income, unemployed, alcoholism, drug addiction, transportation, low edu. Level, literacy, decrease access to med. care, fdc, rehab)? @ -No Was there de-escalation of care discussed even if they declined (Discuss DNR or withdrawal of care, Hospice)? DNR status @ -No What co-morbidities impacted this encounter? (DM, HTN, Smoking, COPD, CAD, Cancer, CVA, ARF, Chemo, Hep., AIDS, mental health diagnosis, sleep apnea, morbid obesity)? @ -None Was patient admitted / discharged? Hospital course, mention meds given and route, prescriptions, significant lab abnormalities, going to OR and other pertinent info. @ -77-year-old female presents emergency department for concerns of myasthenia gravis exacerbation. Patient does not feel well enough to go home. Vital signs upon arrival are within acceptable limits. Laboratory evaluation is obtained. CBC, metabolic panel was unremarkable. Urinalysis shows urinary tract infection. Patient reevaluated bedside found to be in stable condition. Patient does not feel safe to be discharged. She would prefer to be admitted. Patient admitted observation consultation to neurology for evaluation of patient's alleged myasthenia gravis Undiagnosed new problem with uncertain prognosis? @ -No Drug Therapy requiring intensive monitoring for toxicity (Heparin, Nitro, Insulin, Cardizem)? @ -No Were any procedures done? @ -No Diagnosis/symptom? Acute, or Chronic, or Acute on Chronic? Uncomplicated (without systemic symptoms) or Complicated (systemic symptoms)? @ -UTI Side effects of treatment? @ -No Exacerbation, Progression, or Severe Exacerbation? @ -No Poses a threat to life or bodily function? How? (Chest pain, USA, CT, pneumonia, PE, COPD, DKA, ARF, appy, cholecystitis, CVA, Diverticulitis, Homicidal, Suicidal, threat to staff... and all critical care pts) @ -No (Arley Steele) - Lab Data Lab Results 09/19/23 09/19/23 09/19/23 Range/Units 22:53 22:53 22:53 WBC 6.1 (3.8-10.6) k/uL RBC 4.71 (3.80-5.40) m/uL Hgb 13.7 (11.4-16.0) gm/dL Hct 42.5 (34.0-46.0) % MCV 90.1 (80.0-100.0) fL MCH 29.1 (25.0-35.0) pg MCHC 32.3 (31.0-37.0) g/dL RDW 14.5 (11.5-15.5) % Plt Count 237 (150-450) k/uL MPV 9.0 Neutrophils % 80 % Lymphocytes % 11 % Monocytes % 7 % Eosinophils % 0 % Basophils % 0 % Neutrophils # 4.9 (1.3-7.7) k/uL Lymphocytes # 0.7 L (1.0-4.8) k/uL Monocytes # 0.4 (0-1.0) k/uL Eosinophils # 0.0 (0-0.7) k/uL Basophils # 0.0 (0-0.2) k/uL PT 10.9 (10.0-12.5) sec INR 1.0 (<1.2) APTT 28.1 (22.0-30.0) sec Sodium 138 (137-145) mmol/L Potassium 3.8 (3.5-5.1) mmol/L Chloride 104 (98-107) mmol/L Carbon Dioxide 25 (22-30) mmol/L Anion Gap 9 mmol/L BUN 11 (7-17) mg/dL Creatinine 0.71 (0.52-1.04) mg/dL Est GFR (CKD-EPI)AfAm >90 (>60 ml/min/1.73 sqM) Est GFR (CKD-EPI)NonAf 82 (>60 ml/min/1.73 sqM) Glucose 94 (74-99) mg/dL Plasma Lactic Acid Stevie (0.7-2.0) mmol/L Calcium 8.8 (8.4-10.2) mg/dL Magnesium 1.8 (1.6-2.3) mg/dL Total Bilirubin 0.5 (0.2-1.3) mg/dL AST 43 H (14-36) U/L ALT 36 H (4-34) U/L Alkaline Phosphatase 84 (38-126) U/L Total Protein 7.3 (6.3-8.2) g/dL Albumin 4.3 (3.5-5.0) g/dL TSH (0.465-4.680) mIU/L Free T4 (0.78-2.19) ng/dL Urine Color Urine Appearance (Clear) Urine pH (5.0-8.0) Ur Specific Mead (1.001-1.035) Urine Protein (Negative) Urine Glucose (UA) (Negative) Urine Ketones (Negative) Urine Blood (Negative) Urine Nitrite (Negative) Urine Bilirubin (Negative) Urine Urobilinogen (<2.0) mg/dL Ur Leukocyte Esterase (Negative) Urine RBC (0-5) /hpf Urine WBC (0-5) /hpf Urine WBC Clumps (None) /hpf Ur Squamous Epith Cells (0-4) /hpf Amorphous Sediment (None) /hpf Urine Bacteria (None) /hpf Hyaline Casts (0-2) /lpf Urine Mucus (None) /hpf Urine Yeast (Budding) (None) /hpf 09/19/23 09/19/23 09/20/23 Range/Units 22:53 22:53 02:10 WBC (3.8-10.6) k/uL RBC (3.80-5.40) m/uL Hgb (11.4-16.0) gm/dL Hct (34.0-46.0) % MCV (80.0-100.0) fL MCH (25.0-35.0) pg MCHC (31.0-37.0) g/dL RDW (11.5-15.5) % Plt Count (150-450) k/uL MPV Neutrophils % % Lymphocytes % % Monocytes % % Eosinophils % % Basophils % % Neutrophils # (1.3-7.7) k/uL Lymphocytes # (1.0-4.8) k/uL Monocytes # (0-1.0) k/uL Eosinophils # (0-0.7) k/uL Basophils # (0-0.2) k/uL PT (10.0-12.5) sec INR (<1.2) APTT (22.0-30.0) sec Sodium (137-145) mmol/L Potassium (3.5-5.1) mmol/L Chloride (98-107) mmol/L Carbon Dioxide (22-30) mmol/L Anion Gap mmol/L BUN (7-17) mg/dL Creatinine (0.52-1.04) mg/dL Est GFR (CKD-EPI)AfAm (>60 ml/min/1.73 sqM) Est GFR (CKD-EPI)NonAf (>60 ml/min/1.73 sqM) Glucose (74-99) mg/dL Plasma Lactic Acid Stevie 1.0 (0.7-2.0) mmol/L Calcium (8.4-10.2) mg/dL Magnesium (1.6-2.3) mg/dL Total Bilirubin (0.2-1.3) mg/dL AST (14-36) U/L ALT (4-34) U/L Alkaline Phosphatase (38-126) U/L Total Protein (6.3-8.2) g/dL Albumin (3.5-5.0) g/dL TSH 6.450 H (0.465-4.680) mIU/L Free T4 1.60 (0.78-2.19) ng/dL Urine Color Yellow Urine Appearance Clear (Clear) Urine pH 7.0 (5.0-8.0) Ur Specific [place] 1.020 (1.001-1.035) Urine Protein Trace H (Negative) Urine Glucose (UA) Negative (Negative) Urine Ketones Trace H (Negative) Urine Blood Negative (Negative) Urine Nitrite Positive H (Negative) Urine Bilirubin Negative (Negative) Urine Urobilinogen <2.0 (<2.0) mg/dL Ur Leukocyte Esterase Moderate H (Negative) Urine RBC <1 (0-5) /hpf Urine WBC 19 H (0-5) /hpf Urine WBC Clumps Rare H (None) /hpf Ur Squamous Epith Cells 1 (0-4) /hpf Amorphous Sediment Rare H (None) /hpf Urine Bacteria Moderate H (None) /hpf Hyaline Casts 3 H (0-2) /lpf Urine Mucus Few H (None) /hpf Urine Yeast (Budding) Rare H (None) /hpf Disposition <Imelda Bell - Last Filed: 09/19/23 20:50> Decision Time: 02:50 <Arley Steele - Last Filed: 09/20/23 02:50> Clinical Impression: UTI (urinary tract infection) Disposition: ADMITTED IP TO THIS HOSP Condition: Fair Referrals: Alexander Bal DO [Primary Care Provider] - 1-2 days
--- NOTE | 2023-09-19 21:34 | XR ---
EXAMINATION TYPE: XR chest 2V DATE OF EXAM: 09/19/2023 9:08 PM CLINICAL INDICATION:Female, 77 years old with history of Weakness; PHH COMPARISON: Chest radiographs from 09/03/2023 TECHNIQUE: XR chest 2V Frontal and lateral views of the chest. FINDINGS: Lungs/Pleura: There is flattening of the diaphragm with increased lucency of the lungs. No evidence o f pneumothorax, pleural effusion or focal consolidation. Pulmonary vascularity: Unremarkable. Heart/mediastinum: Cardiomediastinal silhouette is unremarkable. A loop recorder projects over the le ft thorax over the heart. Musculoskeletal: Degenerative changes of the shoulder joints. Vertebroplasty changes to the spine. IMPRESSION: 1. No acute cardiopulmonary disease process. 2. COPD changes.
[2023-09-19 23:13] LABS: Basophils % (A) 0 %; Eosinophils % (A) 0 %; HCT 42.5 % (34.0-46.0); HGB 13.7 gm/dL (11.4-16.0); Lymphocytes # (A) 0.7 k/uL (1.0-4.8); Lymphocytes % (A) 11 %; MCH 29.1 pg (25.0-35.0); MCHC 32.3 g/dL (31.0-37.0); MCV 90.1 fL (80.0-100.0); Monocytes # (A) 0.4 k/uL (0-1.0); Monocytes % (A) 7 %; Neutrophils # (A) 4.9 k/uL (1.3-7.7); Neutrophils % (A) 80 %; Platelet Count 237 k/uL (150-450); RBC 4.71 m/uL (3.80-5.40); RDW 14.5 % (11.5-15.5); WBC 6.1 k/uL (3.8-10.6)
[2023-09-19 23:23] LABS: Partial Thromboplastin Time 28.1 sec (22.0-30.0); Prothrombin Time 10.9 sec (10.0-12.5)
[2023-09-19 23:25] LABS: ALT 36 U/L (4-34); AST 43 U/L (14-36); African American GFR (CKD) >90 (>60 ml/min/1.73 sqM); Albumin 4.3 g/dL (3.5-5.0); Alkaline Phosphatase 84 U/L (38-126); Anion Gap 9 mmol/L; Blood Urea Nitrogen 11 mg/dL (7-17); Calcium 8.8 mg/dL (8.4-10.2); Carbon Dioxide 25 mmol/L (22-30); Chloride 104 mmol/L (98-107); Glucose 94 mg/dL (74-99); Magnesium 1.8 mg/dL (1.6-2.3); Non-African American GFR(CKD) 82 (>60 ml/min/1.73 sqM); Potassium 3.8 mmol/L (3.5-5.1); Sodium 138 mmol/L (137-145); Total Bilirubin 0.5 mg/dL (0.2-1.3); Total Protein 7.3 g/dL (6.3-8.2)
[2023-09-20] MEDS: ACETAMINOPHEN TAB 500 MG TAB PO STA (02:15)
[2023-09-20 02:27] LABS: Amorphous Sediment,Urine Rare /hpf; Appearance,Urine Clear (Clear); Bacteria,Urine Moderate /hpf; Bilirubin,Urine Negative (Negative); Blood,Urine Negative (Negative); Budding Yeast,Urine Rare /hpf; Color,Urine Yellow; Glucose,Urine (UA) Negative (Negative); Hyaline Casts,Urine 3 /lpf (0-2); Ketones,Urine Trace (Negative); Leukocyte Esterase,Urine Moderate (Negative); Mucus,Urine Few /hpf; Nitrite,Urine Positive (Negative); Protein,Urine Trace (Negative); RBC,Urine <1 /hpf (0-5); Squamous Epithelial Cell,Urine 1 /hpf (0-4); Urobilinogen,Urine <2.0 mg/dL (<2.0); WBC,Urine 19 /hpf (0-5)
[2023-09-20] MEDS ORDERED: NALOXONE 0.4 MG/ML 1 ML VIAL IV PRN (02:47)
[2023-09-20] MEDS: SODIUM CHLORIDE 0.9% 1,000 ML IV SCH (03:29)
[2023-09-20] MEDS: cefTRIAXone IN SWFI 1,000 MG/10 ML SYRINGE IVP STA (03:29)
[2023-09-20] MEDS: PANTOPRAZOLE 40 MG/10 ML VIAL IVP SCH (10:00)
[2023-09-20] MEDS: LEVOTHYROXINE 112 MCG TAB PO SCH (13:40)
[2023-09-20] MEDS: DULoxetine HCL 60 MG CAPSULE.DR PO SCH (13:40)
[2023-09-20] MEDS: METOPROLOL TARTRATE 25 MG TAB PO SCH (13:40)
[2023-09-20] MEDS: APIXABAN 5 MG TAB PO SCH (21:48)
--- NOTE | 2023-09-21 00:24 | P.HPIM ---
History of Present Illness H&P Date: 09/20/23 Chief Complaint: Generalized weakness Patient is a 77-year-old female with a past medical history of asthma, myasthenia gravis/previously on IVIG until 2020, lupus, sarcoid of lung, Tere's thyroid status post thyroidectomy and depression presents to ER with the complaints of generalized weakness, nausea vomiting. Patient states that she also had diarrhea recently. Due to generalized weakness patient is concerned that she is having another myasthenia gravis attack and came to ER for further evaluation. Patient also complaining of left eye being droopy as well. Denied any headache. No fever no chills. No cough or sputum production. No chest pain or shortness of breath. Chest x-ray showed no acute cardiopulmonary process. COPD changes. EKG showed sinus rhythm with occasional supraventricular premature complexes. Laboratory pressure WBC 6.1 hemoglobin 13.7 platelet 237 Sodium 138 potassium 3.8 chloride 104 bicarb is 25 BUN 11 and creatinine 0.71 and blood sugar 94, AST 43 ALT 36 and alk phos 84, TSH 6.45 and free T4 within normal limits at 1.6 urinalysis showed nitrite positive moderate leukocyte esterase with WBCs 19 and RBCs less than 100 squamous epithelial cells 1 Patient also states that she has been stressed out recently. Currently has a legal guardian and patient is worried that her house is taken away from her. Review of Systems Constitutional: Patient denies any fever or chills . Generalized weakness and fatigue. Abdomen: Patient denied nausea vomiting and diarrhea and abdominal pain. Cardiovascular: Patient denies any chest pain or short of breath no palpitations. Respiratory: patient denied any cough is from production. No shortness of breath Neurologic: Patient denied any numbness or tingling headache. Musculoskeletal: Patient denies any complaints of joint swelling or deformity. Skin: Negative Psychiatric: Negative Endocrine: No heat or cold intolerance. No recent weight gain. Genitourinary: No dysuria or hematuria. All other 14 point ROS negative except the above Past Medical History Past Medical History: Asthma, Respiratory Disorder, Syncope Additional Past Medical History / Comment(s): hx of falls, pt states last fall was in feb 2023. Hx MYASTHENIA GRAVIS, LUPAS,SARCOID OF LUNG,AUTOIMMUME OF THE SKIN,HASHIMOTOS, 2 collapse vertabrae, urinary leakage. History of Any Multi-Drug Resistant Organisms: None Reported Past Surgical History: Cholecystectomy, Tonsillectomy Additional Past Surgical History / Comment(s): THROIDECTOMY, esophagus narrowing/had procedure to stretch jan 2018 Past Anesthesia/Blood Transfusion Reactions: Motion Sickness Past Psychological History: Depression Smoking Status: Never smoker Past Alcohol Use History: None Reported Past Drug Use History: None Reported - Past Family History Father Family Medical History: CVA/TIA Additional Family Medical History / Comment(s): at age 37 w/ CVA Mother Family Medical History: Congestive Heart Failure (CHF), Osteoarthritis (OA) Additional Family Medical History / Comment(s): at age 82 Medications and Allergies Home Medications Medication Instructions Recorded Confirmed Type Apixaban [Eliquis] 5 mg PO BID 01/21/20 09/20/23 History DULoxetine HCL [Cymbalta] 30 mg PO HS 01/21/20 09/20/23 History DULoxetine HCL [Cymbalta] 60 mg PO DAILY 01/21/20 09/20/23 History Ivig 1 dose IV Q30D 01/21/20 09/20/23 History Acetaminophen Tab [Tylenol Tab] 1,000 mg PO Q6HR PRN 09/03/23 09/20/23 History Clopidogrel [Plavix] 75 mg PO DAILY 09/03/23 09/20/23 History Fluticasone/Umeclidin/Vilanter 1 puff INHALATION RT-DAILY 09/03/23 09/20/23 History [Trelegy Ellipta 200-62.5-25] HYDROcodone/APAP 5-325MG [[place] 0.5 tab PO BID PRN 09/03/23 09/20/23 History 5-325] Levothyroxine Sodium [Synthroid] 112 mcg PO AC-BRKFST 09/03/23 09/20/23 History Metoprolol Tartrate [Lopressor] 25 mg PO TID 09/03/23 09/20/23 History Pantoprazole [Protonix] 40 mg PO BID 09/03/23 09/20/23 History Vit C/E/Zn/Coppr/Lutein/Zeaxan 2 cap PO DAILY 09/03/23 09/20/23 History [Preservision Areds 2 Softgel] Metoprolol Tartrate [Lopressor] 25 mg PO TID #90 tablet 09/04/23 09/20/23 Rx Allergies Allergy/AdvReac Type Severity Reaction Status Date / Time adhesive tape Allergy red Verified 09/20/23 16:24 skin,ok to use paper tape codeine Allergy Rash/Hives Verified 09/20/23 16:24 gabapentin Allergy tongue Verified 09/20/23 16:24 numbness Penicillins Allergy Rash/Hives Verified 09/20/23 16:24 quinine Allergy Unknown Verified 09/20/23 16:24 Sulfa (Sulfonamide Allergy Rash/Hives Verified 09/20/23 16:24 Antibiotics) aspirin AdvReac doesn't Verified 09/20/23 16:24 take with eliquis digoxin AdvReac Rapid Verified 09/20/23 16:24 Heart Rate diphenhydramine AdvReac Unknown Verified 09/20/23 16:24 [facility] Physical Exam Vitals: Vital Signs Temp Pulse Pulse Resp BP BP Pulse Ox 09/20/23 07:25 97.9 F 103 H 17 108/67 95 09/20/23 04:23 98.3 F 89 18 110/68 95 09/20/23 01:49 97.9 F 87 17 97/70 96 09/19/23 22:53 69 18 121/72 98 09/19/23 20:49 97.7 F 111 H 18 127/82 96 Intake and Output 09/19/23 09/20/23 09/20/23 22:59 06:59 14:59 Other: Voiding Method Toilet # Voids 1 1 Weight 68.039 kg 68.039 kg PHYSICAL EXAMINATION: Patient is lying in the bed comfortably, no acute distress, awake alert and oriented.. HEENT: Normocephalic. Neck is supple. Pupils reactive. Nostrils clear. Oral cavity is moist. Neck reveals no JVD, carotid bruits, or thyromegaly. CHEST EXAMINATION: Trachea is central. Symmetrical expansion. Lung chiang clear to auscultation and percussion. CARDIAC: Normal S1, S2 with no gallops. No murmurs ABDOMEN: Soft. Bowel sounds normal. No organomegaly. No abdominal bruits. Extremities: reveal no edema. No clubbing or cyanosis Neurologically awake, alert, oriented x3 with well-coordinated movements. Minimal proximal muscle weakness. No gross focal deficits noted Skin: No rash or skin lesions. Psychiatric: Coperative. Nonsuicidal Musculoskeletal: No joint swelling or deformity. Normal range of motion. Results CBC & Chem 7: 09/21/23 04:17 09/19/23 22:53 Labs: Abnormal Lab Results - Last 24 Hours (Table) 09/19/23 09/19/23 09/19/23 Range/Units 22:53 22:53 22:53 Lymphocytes # 0.7 L (1.0-4.8) k/uL AST 43 H (14-36) U/L ALT 36 H (4-34) U/L TSH 6.450 H (0.465-4.680) mIU/L Urine Protein (Negative) Urine Ketones (Negative) Urine Nitrite (Negative) Ur Leukocyte Esterase (Negative) Urine WBC (0-5) /hpf Urine WBC Clumps (None) /hpf Amorphous Sediment (None) /hpf Urine Bacteria (None) /hpf Hyaline Casts (0-2) /lpf Urine Mucus (None) /hpf Urine Yeast (Budding) (None) /hpf 09/20/23 Range/Units 02:10 Lymphocytes # (1.0-4.8) k/uL AST (14-36) U/L ALT (4-34) U/L TSH (0.465-4.680) mIU/L Urine Protein Trace H (Negative) Urine Ketones Trace H (Negative) Urine Nitrite Positive H (Negative) Ur Leukocyte Esterase Moderate H (Negative) Urine WBC 19 H (0-5) /hpf Urine WBC Clumps Rare H (None) /hpf Amorphous Sediment Rare H (None) /hpf Urine Bacteria Moderate H (None) /hpf Hyaline Casts 3 H (0-2) /lpf Urine Mucus Few H (None) /hpf Urine Yeast (Budding) Rare H (None) /hpf Thrombosis Risk Factor Assmnt - DVT/VTE Prophylaxis DVT/VTE Prophylaxis: Pharmacologic Prophylaxis ordered - Choose All That Apply Any of the Below Risk Factors Present?: Yes Each Factor Represents 1 point: Obesity (BMI >25) Other Risk Factors: Yes Each Risk Factor Represents 3 Points: Age 75 years or older Other congenital or acquired thrombophilia - If yes, enter type in comment: No Thrombosis Risk Factor Assessment Total Risk Factor Score: 4 Thrombosis Risk Factor Assessment Level: Moderate Risk Assessment and Plan Assessment: Acute urinary tract infection Generalized weakness and fatigue Myasthenia gravis. Patient was previously on IVIG until 2020. Currently not on any immunosuppressive therapy. Patient was [facility] Hypothyroidism Paroxysmal atrial fibrillation on anticoagulation with Eliquis Mild transaminitis History of sarcoid of the lung and lupus as per patient. DVT prophylaxis with heparin subcu Plan: Patient will be continued on gentle IV hydration. Continue with ceftriaxone and follow-up urine culture report. Due to concern for worsening symptoms of myasthenia gravis with slight proximal muscle weakness, neurology was consulted for further evaluation. Acetylcholine receptor antibodies were ordered. Continue with home medications and follow-up closely. PT OT and speech and swallow evaluation. Patient does have a legal guardian. Time with Patient: Greater than 30
[2023-09-21] MEDS: ONDANSETRON 4 MG/2 ML VIAL IVP PRN (01:03)
[2023-09-21] MEDS: SYMBICORT 160-4.5 MCG INHALER INHALATION SCH (09:24)
[2023-09-21] MEDS: IPRATROPIUM 0.5 MG/2.5 ML NEBU INHALATION SCH (09:24)
--- NOTE | 2023-09-21 09:31 | P.CNNES ---
History of Present Illness Consult date: 09/20/23 Requesting physician: Arley Steele Reason for Consult: reported myasthenia gravis History of Present Illness: Patient is a 77-year-old female with history of myasthenia gravis, A-fib, CHF, came to the hospital yesterday at 7:41 PM for vomiting, diarrhea. Patient also has history of myasthenia gravis, currently not on treatment, therefore neurology was consulted. Patient states that her symptoms of myasthenia started in 2012 when she could not comb her hair. In 2018 or 2018 she started having symptoms of ocular myasthenia with diplopia. She states that she always has diplopia. She states that "eyes goes to back of the head". She self diagnosed myasthenia gravis, when she was looking at autoimmune diseases, and felt that she has all symptoms of myasthenia gravis. She states that she saw Dr. Landrum, who performed blood test and was found to have elevated antibodies. She was referred to [facility] and saw neuromuscular specialist once but then he retired. Then she started seeing a neuromuscular specialist Dr. Guerra at [facility], who initially started her on pyridostigmine 3 times a day, but she developed significant side effects, with diarrhea, which was coffee colored. She could not tolerate it. She also had side effects from prednisone. She also started seeing Dr. Conti at [facility], who started on IVIG 60 g every 2 weeks, which she took from 2018 until it was discontinued in 2020 while COVID was going on. She has not seen a neurologist, and has not been treated for myasthenia gravis since then. She states that she feels her arms are getting weaker in the last couple weeks. She is also having some trouble with breathing. She claims that she has diplopia "all the time". It depends on the angle that she looks at. She also complains of having difficulty swallowing but it "comes and goes". Patient states that she has undergone dilation of the esophagus in the past. She always have diplopia. Patient states that she passed out 2 [address]. She saw her doctor, and after she left, 30 minutes later she passed out again with a [employer]. He also passed out in February 01, 2023. Vital signs on arrival blood pressure 127/82, pulse rate 111, temperature 97.7. Blood test shows normal CBC, PT PTT, normal basic metabolic panel. AST is 43, ALT 36. TSH is 6.45. Free T4 normal 1.60. UA shows moderate amount of leukocyte esterase, 19 WBCs and rare WBC clumps. Nitrite positive. EKG shows sinus rhythm with occasional supraventricular premature complexes. Chest x-ray showed no acute cardiopulmonary disease or process. COPD changes. Patient's previous CT of the chest from 07/28/2018 showed COPD, otherwise unremarkable study. Patient claims that she has history of sarcoidosis diagnosed in 1991, also has lupus, pemphigus, Raynaud's. Also complains of hiatal hernia. Home medications include Eliquis 5 mg twice daily, IVIG every 30 days, Cymbalta 60 mg in the morning, 30 mg at bedtime, Plavix 75 mg, Greig, metoprolol, pantoprazole 40 mg twice daily, levothyroxine and metoprolol. Review of Systems Constitutional: Denies chills, Denies fever Eyes: bilateral blurred vision, bilateral diplopia, denies pain, denies loss of vision (acular degeneration right eye) Ears: deny: decreased hearing, ear discharge Ears, nose, mouth and throat: Denies headache, Denies sore throat, Denies vertigo Cardiovascular: Reports chest pain (off and on), Reports shortness of breath Respiratory: Reports cough, Reports excessive sputum Gastrointestinal: Reports nausea, Reports vomiting (Bend over then feels ), Denies abdominal pain, Denies diarrhea Genitourinary: Reports urge incontinence (Off and on), Reports urinary frequency, Denies dysuria, Denies hematuria Musculoskeletal: Reports low back pain, Reports neck pain Integumentary: Reports rash (Comes and goes), Denies pruritus Neurological: Reports as per HPI Psychiatric: Reports anxiety, Reports depression Hematologic/Lymphatic: Denies easy bleeding, Denies easy bruising Past Medical History Past Medical History: Asthma, Respiratory Disorder, Syncope Additional Past Medical History / Comment(s): hx of falls, pt states last fall w as in feb 2023. Hx MYASTHENIA GRAVIS, LUPAS,SARCOID OF LUNG,AUTOIMMUME OF THE SKIN,HASHIMOTOS, 2 collapse vertabrae, urinary leakage. History of Any Multi-Drug Resistant Organisms: None Reported Past Surgical History: Cholecystectomy, Tonsillectomy Additional Past Surgical History / Comment(s): THROIDECTOMY, esophagus narro wing/had procedure to stretch jan 2018 Past Anesthesia/Blood Transfusion Reactions: Motion Sickness Past Psychological History: Depression Smoking Status: Never smoker Past Alcohol Use History: None Reported Past Drug Use History: None Reported - Past Family History Father Family Medical History: CVA/TIA Additional Family Medical History / Comment(s): at age 37 w/ CVA Mother Family Medical History: Congestive Heart Failure (CHF), Osteoarthritis (OA) Additional Family Medical History / Comment(s): at age 82 Medications and Allergies Home Medications Medication Instructions Recorded Confirmed Type Apixaban [Eliquis] 5 mg PO BID 01/21/20 09/20/23 History DULoxetine HCL [Cymbalta] 30 mg PO HS 01/21/20 09/20/23 History DULoxetine HCL [Cymbalta] 60 mg PO DAILY 01/21/20 09/20/23 History Ivig 1 dose IV Q30D 01/21/20 09/20/23 History Acetaminophen Tab [Tylenol Tab] 1,000 mg PO Q6HR PRN 09/03/23 09/20/23 History Clopidogrel [Plavix] 75 mg PO DAILY 09/03/23 09/20/23 History Fluticasone/Umeclidin/Vilanter 1 puff INHALATION RT-DAILY 09/03/23 09/20/23 History [Trelegy Ellipta 200-62.5-25] HYDROcodone/APAP 5-325MG [Greig 0.5 tab PO BID PRN 09/03/23 09/20/23 History 5-325] Levothyroxine Sodium [Synthroid] 112 mcg PO AC-BRKFST 09/03/23 09/20/23 History Metoprolol Tartrate [Lopressor] 25 mg PO TID 09/03/23 09/20/23 History Pantoprazole [Protonix] 40 mg PO BID 09/03/23 09/20/23 History Vit C/E/Zn/Coppr/Lutein/Zeaxan 2 cap PO DAILY 09/03/23 09/20/23 History [Preservision Areds 2 Softgel] Metoprolol Tartrate [Lopressor] 25 mg PO TID #90 tablet 09/04/23 09/20/23 Rx Allergies Allergy/AdvReac Type Severity Reaction Status Date / Time adhesive tape Allergy red Verified 09/20/23 16:24 skin,ok to use paper tape codeine Allergy Rash/Hives Verified 09/20/23 16:24 gabapentin Allergy tongue Verified 09/20/23 16:24 numbness Penicillins Allergy Rash/Hives Verified 09/20/23 16:24 quinine Allergy Unknown Verified 09/20/23 16:24 Sulfa (Sulfonamide Allergy Rash/Hives Verified 09/20/23 16:24 Antibiotics) aspirin AdvReac doesn't Verified 09/20/23 16:24 take with eliquis digoxin AdvReac Rapid Verified 09/20/23 16:24 Heart Rate diphenhydramine AdvReac Unknown Verified 09/20/23 16:24 [From [facility]] Physical Examination - Vital Signs Vital Signs: Vital Signs Temp Pulse Pulse Resp BP BP Pulse Ox 09/20/23 12:25 98.5 F 103 H 18 98/63 95 09/20/23 07:25 97.9 F 103 H 17 108/67 95 09/20/23 04:23 98.3 F 89 18 110/68 95 09/20/23 01:49 97.9 F 87 17 97/70 96 09/19/23 22:53 69 18 121/72 98 09/19/23 20:49 97.7 F 111 H 18 127/82 96 Intake and Output 09/20/23 09/20/23 09/20/23 06:59 14:59 22:59 Other: Voiding Method Toilet # Voids 1 1 1 Weight 68.039 kg Patient is an elderly female, very pleasant, in no acute distress. Patient is alert awake oriented to time place and person. Speech and language functions are normal. Patient can name and repeat very well. No aphasia or dysarthria. Attention, concentration and fund of knowledge is adequate. On cranial nerve examination, pupils are equal, round and reacting to light, visual chiang are full on confrontation, with no neglect on double simultaneous stimulation. Extraocular muscles are intact with no nystagmus. No obvious ptosis noted. Face is symmetric, tongue protrudes to the midline. Palatal elevation and sensation normal, hearing and shoulder shrug normal, facial sensation normal. Patient's strength of the facial musculature including eye cl osure, lip closure, tongue protrusion to the side appears very strong. Her neck flexion is weak about 4+. On muscle strength testing, there is no pronator drift. The strength is symmetric bilaterally with deltoid 5-, biceps 5, triceps 5, roll setter 4+, hip flexion 4 4-, ankle dorsiflexion 5. Deep tendon reflexes are symmetric biceps 1+2, brachioradialis 1+2, knee 0 on the right, 1+ left. Ankles are 1 bilaterally. Plantars downgoing. Sensory to touch is equal with no neglect on double simultaneous stimulation. Cerebellar function showed no ataxia for [id number] testing. No dysdiadochokinesia. No ataxia for [id number] testing on either side. Tone and bulk of muscles normal. Gait deferred.. On general examination, there is no carotid bruit or murmur, S1-S2 audible. Chest is clear on consultation. Abdomen is soft nontender. No organomegaly, bowel sounds present. Peripheral pulses are present. No peripheral edema. Results - Laboratory Findings CBC and BMP: 09/19/23 22:53 09/19/23 22:53 Abnormal Lab Findings: Abnormal Labs 09/19/23 09/19/23 09/19/23 22:53 22:53 22:53 Lymphocytes # 0.7 L AST 43 H ALT 36 H TSH 6.450 H Urine Protein Urine Ketones Urine Nitrite Ur Leukocyte Esterase Urine WBC Urine WBC Clumps Amorphous Sediment Urine Bacteria Hyaline Casts Urine Mucus Urine Yeast (Budding) 09/20/23 02:10 Lymphocytes # AST ALT TSH Urine Protein Trace H Urine Ketones Trace H Urine Nitrite Positive H Ur Leukocyte Esterase Moderate H Urine WBC 19 H Urine WBC Clumps Rare H Amorphous Sediment Rare H Urine Bacteria Moderate H Hyaline Casts 3 H Urine Mucus Few H Urine Yeast (Budding) Rare H Assessment and Plan Assessment: * Myasthenia gravis. Patient believes her symptoms are getting worse. Patient has subjective diplopia sometimes, generalized weakness. Examination revealed some neck flexion weakness, and slight proximal muscle weakness. Facial musculature appeared fairly normal. Patient used to receive IVIG but has not received since 2020. Currently not on any immune suppressive/immunomodulatory treatment * Elevated liver enzymes. * Atrial fibrillation, on Eliquis * Reported previous diagnosis of sarcoidosis, lupus. Plan: * Patient believes her symptoms are getting worse. I discussed with her about empirically giving IVIG if that worked in the past. She has not received IVIG since 2020. Patient wants further workup before embarking on IVIG. * We will check respiratory status, with vital capacity and NIF * Speech therapy evaluation for swallow and speech evaluation. * Acetylcholine receptor antibodies. Unfortunately it takes more than a week to get the results of antibody testing. * We will consider IVIG once she has objective evidence of myasthenia gravis. * Dr. Hong Nielson will resume neurology service from Friday. * Thank you for the consult. Time with Patient: Greater than 30
[2023-09-21 09:34] LABS: Basophils # (A) 0 X 10*3/uL (0.00-0.10); Basophils % (A) 0 %; Eosinophils # (A) 0 X 10*3/uL (0.04-0.35); Eosinophils % (A) 0 %; HCT 35.3 % (37.2-46.3); HGB 11.1 g/dL (12.0-15.0); Lymphocytes # (A) 0.65 X 10*3/uL (0.90-5.00); Lymphocytes % (A) 10.3 %; MCHC 31.4 g/dL (32.0-37.0); MCV 92.2 FL (80.0-97.0); Mean Platelet Volume 12.3 FL (9.5-12.2); Monocytes # (A) 0.43 X 10*3/uL (0.20-1.00); Monocytes % (A) 6.8 %; NRBC Per 100 WBC 0 X 10*3/uL (0.00-0.01); Neutrophils # (A) 5.19 X 10*3/uL (1.80-7.70); Neutrophils % (A) 82.6 %; Platelet Count 215 X 10*3/uL (140-440); RBC 3.83 X 10*6/uL (4.10-5.20); RDW 14.6 % (11.5-14.5); WBC 6.29 X 10*3/uL (4.50-10.00)
[2023-09-21 10:07] LABS: BUN/Creat Ratio 13.75 Ratio (12.00-20.00); Carbon Dioxide 21.2 mmol/L (21.6-31.8); Chloride 106 mmol/L (96-109); Glucose 103 mg/dL (70-110); Potassium 3.9 mmol/L (3.5-5.5); Rheumatoid Factor, Qnt <15 IU/mL (0-15); Sodium 140 mmol/L (135-145)
[2023-09-21 10:08] LABS: ALT 29 U/L (8-44); AST 33 U/L (13-35); Albumin 3.8 g/dL (3.8-4.9); Albumin/Globulin Ratio 1.81 Ratio (1.60-3.17); Alkaline Phosphatase 71 U/L (41-126); Calcium 8.2 mg/dL (8.7-10.3); Globulin 2.1 g/dL (1.6-3.3); Total Bilirubin <0.2 mg/dL (0.3-1.2); Total Protein 5.9 g/dL (6.2-8.2)
[2023-09-21] MEDS: ACETAMINOPHEN TAB 325 MG TAB PO PRN (10:23)
--- NOTE | 2023-09-21 13:33 | P.PN ---
Subjective Progress Note Date: 09/21/23 Patient was seen for a follow-up. Patient is sitting comfortably in the bed. No new concerns. Objective - Vital Signs Vital signs: Vital Signs Temp 98.2 F 09/21/23 08:00 Pulse 68 09/21/23 08:00 Resp 16 09/21/23 08:00 BP 112/67 09/21/23 08:00 Pulse Ox 94 L 09/21/23 08:00 FiO2 Intake & Output 09/20/23 09/21/23 09/21/23 18:59 06:59 18:59 Intake Total 1785 Balance 1785 Intake: Intake, IV Titration 825 Amount Sodium Chloride 0.9% 1, 825 000 ml @ 75 mls/hr IV . [id number] [facility] Rx#:[id number] Oral 960 Other: Voiding Method Toilet Toilet # Voids 1 6 - Exam Unchanged. - Labs CBC & Chem 7: 09/21/23 04:17 09/21/23 04:17 Labs: Abnormal Lab Results - Last 24 Hours (Table) 09/21/23 09/21/23 Range/Units 04:17 04:17 RBC 3.83 L (4.10-5.20) X 10*6/uL Hgb 11.1 L (12.0-15.0) g/dL Hct 35.3 L (37.2-46.3) % MCHC 31.4 L (32.0-37.0) g/dL RDW 14.6 H (11.5-14.5) % MPV 12.3 H (9.5-12.2) FL Lymphocytes # 0.65 L (0.90-5.00) X 10*3/uL Eosinophils # 0 L (0.04-0.35) X 10*3/uL Carbon Dioxide 21.2 L (21.6-31.8) mmol/L Anion Gap 12.80 H (4.00-12.00) mmol/L Calcium 8.2 L (8.7-10.3) mg/dL Total Bilirubin <0.2 L (0.3-1.2) mg/dL Total Protein 5.9 L (6.2-8.2) g/dL Microbiology - Last 24 Hours (Table) 09/20/23 03:15 Blood Culture - Preliminary Blood 09/20/23 03:00 Blood Culture - Preliminary Blood 09/20/23 02:03 Urine Culture - Preliminary Urine,Voided Gram Neg Bacilli Assessment and Plan Assessment: * Myasthenia gravis. Patient believes her symptoms are getting worse. Patient has subjective diplopia sometimes, generalized weakness. Examination revealed some neck flexion weakness, and slight proximal muscle weakness. Facial musculature appeared fairly normal. Patient used to receive IVIG but has not received since 2020. Currently not on any immune suppressive/immunomodulatory treatment * Elevated liver enzymes. * Atrial fibrillation, on Eliquis * Reported previous diagnosis of sarcoidosis, lupus. Plan: * Patient believes her symptoms are getting worse. I discussed with her about empirically giving IVIG if that worked in the past. She has not received IVIG since 2020. Patient wants further workup before embarking on IVIG. * Await respiratory therapist evaluation for vital capacity and NIF * Speech therapy evaluation for swallow and speech evaluation. * Acetylcholine receptor antibodies. Unfortunately it takes more than a week to get the results of antibody testing. * Patient will consider treatment with IVIG after above tests are completed. * Dr. Hong Nielson will resume neurology service from morning.
[2023-09-21] MEDS ORDERED: ARTIFICIAL TEARS-HYPROMELLOSE DROPS 15 ML BTL BOTH EYES PRN (15:31)
[2023-09-21] MEDS: DOCUSATE 100 MG CAP PO SCH (17:34)
[2023-09-21] MEDS: PANTOPRAZOLE 40 MG TABLET PO SCH (17:34)
[2023-09-21] MEDS: DULoxetine HCL 30 MG CAPSULE.DR PO SCH (21:26)
[2023-09-22 08:36] LABS: Basophils # (A) 0.01 X 10*3/uL (0.00-0.10); Basophils % (A) 0.2 %; Eosinophils # (A) 0 X 10*3/uL (0.04-0.35); Eosinophils % (A) 0 %; HCT 35.7 % (37.2-46.3); HGB 11.4 g/dL (12.0-15.0); Lymphocytes # (A) 0.59 X 10*3/uL (0.90-5.00); Lymphocytes % (A) 10.3 %; MCH 29.6 pg (27.0-32.0); MCHC 31.9 g/dL (32.0-37.0); MCV 92.7 FL (80.0-97.0); Monocytes # (A) 0.36 X 10*3/uL (0.20-1.00); Monocytes % (A) 6.3 %; NRBC Per 100 WBC 0 X 10*3/uL (0.00-0.01); Neutrophils # (A) 4.76 X 10*3/uL (1.80-7.70); Neutrophils % (A) 82.9 %; Platelet Count 193 X 10*3/uL (140-440); RBC 3.85 X 10*6/uL (4.10-5.20); RDW 14.4 % (11.5-14.5); WBC 5.74 X 10*3/uL (4.50-10.00)
[2023-09-22 08:45] LABS: BUN/Creat Ratio 16.17 Ratio (12.00-20.00); Blood Urea Nitrogen 9.7 mg/dL (9.0-27.0); Calcium 8.3 mg/dL (8.7-10.3); Carbon Dioxide 24.1 mmol/L (21.6-31.8); Chloride 106 mmol/L (96-109); Glucose 95 mg/dL (70-110); Potassium 4.3 mmol/L (3.5-5.5); Sodium 140 mmol/L (135-145)
--- NOTE | 2023-09-22 16:55 | P.PN ---
Subjective Progress Note Date: 09/22/23 I am seeing the patient for the first time during this admission. Please refer to Dr. Hein's notes for further details. It seems that the patient has a history of myasthenia gravis in the past and has stopped taking Mestinon on her own about 3 years ago because it was giving her diarrhea. She stated that she was on IVIG every 2 weeks and she also stopped it on herself for probably more than 1 and half year and per Dr. Hein's note he stated since 2020. She stated she was eval by different neurologist in the past. It seems that she has generalized weakness but it seems that she has acute UTI and she feels her weakness is improving and she is walking on her own and per the primary team as well as her nurse she is showing improvement. During this hospital visit she refused to be on any medication and she was to be tested again and the test that was ordered takes more than a week to come back. Objective - Vital Signs Vital signs: Vital Signs Temp 97.9 F 09/22/23 13:47 Pulse 68 09/22/23 16:16 Resp 19 09/22/23 13:47 BP 109/68 09/22/23 13:47 Pulse Ox 96 09/22/23 13:47 FiO2 Intake & Output 09/21/23 09/22/23 09/22/23 18:59 06:59 18:59 Output Total 800 Balance -800 Output: Urine 800 Other: Voiding Method Toilet Toilet Toilet # Voids 3 4 4 - Exam General: Lying in bed and is not in acute distress. Neuro: Patient is awake alert oriented to self place and time. Patient is following simple commands. No aphasia no neglect. Pulls are round equal reactive to light. Visual chiang are full to confrontation. Extraocular movement intact. No facial weakness. No dysarthria Motor the strength in the uppers are 5 out of 5 lowers is at least 4+ to 5-20 wall distally is the ankles are 5 out of 5. Sensation is normal to touch throughout - Labs CBC & Chem 7: 09/22/23 04:52 09/22/23 04:52 Labs: Abnormal Lab Results - Last 24 Hours (Table) 09/22/23 09/22/23 Range/Units 04:52 04:52 RBC 3.85 L (4.10-5.20) X 10*6/uL Hgb 11.4 L (12.0-15.0) g/dL Hct 35.7 L (37.2-46.3) % MCHC 31.9 L (32.0-37.0) g/dL Lymphocytes # 0.59 L (0.90-5.00) X 10*3/uL Eosinophils # 0 L (0.04-0.35) X 10*3/uL Calcium 8.3 L (8.7-10.3) mg/dL Microbiology - Last 24 Hours (Table) 09/20/23 02:03 Urine Culture - Final Urine,Voided Proteus mirabilis 09/20/23 03:15 Blood Culture - Preliminary Blood 09/20/23 03:00 Blood Culture - Preliminary Blood Assessment and Plan Assessment: * Myasthenia gravis. Patient believes her symptoms are getting worse. Patient has subjective diplopia sometimes, generalized weakness. Examination revealed some neck flexion weakness, and slight proximal muscle weakness. Facial musculature appeared fairly normal. Patient used to receive IVIG but has not received since 2020. Currently not on any immune suppressive/immunomodulatory treatment. Patient has acute UTI which can give generalized weakness and per the primary team and her nurse her strength is improving and the patient agrees that she is getting better. * Acute UTI * Elevated liver enzymes. * Atrial fibrillation, on Eliquis * Reported previous diagnosis of sarcoidosis, lupus. Plan: Patient was eval by different neurologist as an outpatient and she stopped Mestinon on her own because she was given her diarrhea. So she was getting IVIG as an outpatient for her myasthenia gravis and stopped it on her own more than 1-1/2 years ago Currently her generalized weakness is improving and she is walking on her own. She notified Dr. Hein she wants further workup before embarking on IVIG therefore Dr. Hein ordered acetylcholine receptor antibody. The test will take more than a week for the result to come back. I will have her follow-up with a neurologist as an outpatient for further evaluation and I would recommend for her to resume IVIG. The primary team and myself agreed that she is improving with the treatment of the UTI and she is walking without any assistance and she does not have any respiratory distress or any obvious deficit therefore we will address IVIG and myasthenia gravis as an outpatient especially to been having years without any medication. The rest of the medical management to the primary team Otherwise no additional neurological workup. Please notify neurology team of any further concerns. Time with Patient: Less than 30
[2023-09-23 08:59] LABS: BUN/Creat Ratio 13.57 Ratio (12.00-20.00); Blood Urea Nitrogen 9.5 mg/dL (9.0-27.0); Calcium 8.6 mg/dL (8.7-10.3); Carbon Dioxide 24.8 mmol/L (21.6-31.8); Chloride 104 mmol/L (96-109); Glucose 95 mg/dL (70-110); Potassium 4.1 mmol/L (3.5-5.5); Sodium 141 mmol/L (135-145)
[2023-09-23 09:43] VITALS: RESP 16
[2023-09-23 16:15] VITALS: BP 120/77; PULSE 58; TEMP 97.4
== END 2023-09-23 16:11 | disposition home or self-care (01) ==
LOC: EC 19:41 → 4SSUR 09-20 02:47 → EEVIPCON 09-20 02:47 → 4SSUR 09-20 03:05
PROVIDERS: ADMIT Hospitalist; ATTEND Hospitalist
DX: G70.00 Myasthenia gravis without (acute) exacerbation (principal); I48.91 Unspecified atrial fibrillation; I11.0 Hypertensive heart disease with heart failure; I50.9 Heart failure, unspecified; R79.89 Other specified abnormal findings of blood chemistry; M32.9 Systemic lupus erythematosus, unspecified; Z91.81 History of falling; Z82.49 Family history of ischemic heart disease and other diseases of the circulatory system; Z82.3 Family history of stroke; Z79.899 Other long term (current) drug therapy; Z79.02 Long term (current) use of antithrombotics/antiplatelets; Z79.01 Long term (current) use of anticoagulants
CPT/HCPCS: 96366 ×3; 96375 ×2; 96376; 96365; 99285; 36415; 94640 ×2; 93005; 92610; 84439; 86041; 80053 ×2; 80048 ×2; 84443; 82607; 82746; 83605; 83735; 85025 ×3; 85610; 85730; 86431; 81001; 87040; 87086; 87077; 87186; 71046; G0378 ×4; J2405; J0696 ×4; C9113 ×2

== ENCOUNTER 2023-12-30 17:06 | Inpatient (IN) | payer MEDICARE, OTHER ==
--- NOTE | 2023-12-30 17:44 | ED ---
Recheck HPI - General Source: patient, RN notes reviewed Mode of arrival: ambulatory Limitations: no limitations <Keila Meadows - Last Filed: 12/30/23 17:42> <Arley Steele - Last Filed: 12/30/23 19:53> - General Chief Complaint: Recheck/Abnormal Lab/Rx Stated Complaint: CORBY Time Seen by Provider: 12/30/23 17:42 - History of Present Illness Initial Comments: Quick [id number] female with history of myasthenia gravis presenting with weakness x 2 weeks with associated shortness of breath and difficulty am bulating. States she is having difficulty getting out of bed due to the weakness. Denies chest pain, cough, fevers, abdominal pain. States she does have a history of UTIs which have caused generalized weakness previously. (Keila Meadows) Dictation was produced using [employer] dictation software. please excuse any grammatical, word or spelling errors. Chief Complaint: 78-year-old female with weakness History of Present Illness: 78-year-old female presents emergency department weakness. Patient reports that she has extensive history of myasthenia gravis. Patient states that she is her guardian. States that she would like to follow- up with neurologist for myasthenia gravis at [place] or [place]. Patient states that her legal guardian states that she will see a neurologist here. Denies any pain. Denies any fever or constitutional symptoms. The ROS documented in this emergency department record has been reviewed and confirmed by me. Those systems with pertinent positive or negative responses have been documented in the HPI. All other systems are other negative and/or noncontributory. (Arley Steele) - Related Data Home Medications Medication Instructions Recorded Confirmed Apixaban [Eliquis] 5 mg PO BID 01/21/20 09/20/23 DULoxetine HCL [Cymbalta] 30 mg PO HS 01/21/20 09/20/23 DULoxetine HCL [Cymbalta] 60 mg PO DAILY 01/21/20 09/20/23 Ivig 1 dose IV Q30D 01/21/20 09/20/23 Acetaminophen Tab [Tylenol] 1,000 mg PO Q6HR PRN 09/03/23 09/20/23 Clopidogrel [Plavix] 75 mg PO DAILY 09/03/23 09/20/23 Fluticasone/Umeclidin/Vilanter 1 puff INHALATION RT-DAILY 09/03/23 09/20/23 [Trelegy Ellipta 200-62.5-25] HYDROcodone/APAP 5-325MG [[place] 0.5 tab PO BID PRN 09/03/23 09/20/23 5-325] Levothyroxine Sodium [Synthroid] 112 mcg PO AC-BRKFST 09/03/23 09/20/23 Metoprolol Tartrate [Lopressor] 25 mg PO TID 09/03/23 09/20/23 Pantoprazole [Protonix] 40 mg PO BID 09/03/23 09/20/23 Vit C/E/Zn/Coppr/Lutein/Zeaxan 2 cap PO DAILY 09/03/23 09/20/23 [Preservision Areds 2 Softgel] Previous Rx's Medication Instructions Recorded cefUROXime axetiL [Ceftin] 500 mg PO BID 3 Days #6 tab 09/23/23 Allergies Allergy/AdvReac Type Severity Reaction Status Date / Time adhesive tape Allergy red Verified 12/30/23 17:15 skin,ok to use paper tape codeine Allergy Rash/Hives Verified 12/30/23 17:15 gabapentin Allergy tongue Verified 12/30/23 17:15 numbness Penicillins Allergy Rash/Hives Verified 12/30/23 17:15 quinine Allergy Unknown Verified 12/30/23 17:15 Sulfa (Sulfonamide Allergy Rash/Hives Verified 12/30/23 17:15 Antibiotics) aspirin AdvReac doesn't Verified 12/30/23 17:15 take with eliquis digoxin AdvReac Rapid Verified 12/30/23 17:15 Heart Rate diphenhydramine AdvReac Unknown Verified 12/30/23 17:15 [From Benadryl] Review of Systems ROS Other: All systems not noted in ROS Statement are negative. <Keila Meadows - Last Filed: 12/30/23 17:42> ROS Other: All systems not noted in ROS Statement are negative. <Arley Steele - Last Filed: 12/30/23 19:53> ROS Statement: Those systems with pertinent positive or pertinent negative responses have been documented in the HPI. Past Medical History Past Medical History: Asthma, Respiratory Disorder, Syncope Additional Past Medical History / Comment(s): hx of falls, pt states last fall was in feb 2023. Hx MYASTHENIA GRAVIS, LUPAS,SARCOID OF LUNG,AUTOIMMUME OF THE SKIN,HASHIMOTOS, 2 collapse vertabrae, urinary leakage. History of Any Multi-Drug Resistant Organisms: None Reported Past Surgical History: Cholecystectomy, Tonsillectomy Additional Past Surgical History / Comment(s): THROIDECTOMY, esophagus narrowing/had procedure to stretch jan 2018 Past Anesthesia/Blood Transfusion Reactions: Motion Sickness Past Psychological History: Depression Smoking Status: Never smoker Past Alcohol Use History: None Reported Past Drug Use History: None Reported - Past Family History Father Family Medical History: CVA/TIA Additional Family Medical History / Comment(s): at age 37 w/ CVA Mother Family Medical History: Congestive Heart Failure (CHF), Osteoarthritis (OA) Additional Family Medical History / Comment(s): at age 82 <Keila Meadows - Last Filed: 12/30/23 17:42> General Exam Limitations: no limitations <Keila Meadows - Last Filed: 12/30/23 17:42> <Arley Steele - Last Filed: 12/30/23 19:53> - General Exam Comments Initial Comments: Visual Physical Exam Vital signs reviewed General: Well-appearing, nontoxic, no acute distress. Head: Normocephalic, atraumatic Eyes: PERRLA, EOMI ENT: Airway patent Chest: Nonlabored breathing Skin: No visual rash, normal skin tone Neuro: Alert and oriented 3 Musculoskeletal: No gross abnormalities (Keila Meadows) PHYSICAL EXAM: General Impression: Alert and oriented x3, not in acute distress HEENT: Normocephalic atraumatic, extra-ocular movements intact, pupils equal and reactive to light bilaterally, mucous membranes moist. Cardiovascular: Heart regular rate and rhythm Chest: Able to complete full sentences, no retractions, no tachypnea Abdomen: abdomen soft, non-tender, non-distended, no organomegaly Musculoskeletal: Pulses present and equal in all extremities, no peripheral edema Motor: no focal deficits noted Neurological: CN II-XII grossly intact, no focal motor or sensory deficits noted Skin: Intact with no visualized rashes Psych: Normal affect and mood (Arley Steele) Course Vital Signs 12/30/23 17:12 Temperature 97.8 F Pulse Rate 61 Respiratory 18 Rate Blood Pressure 124/73 O2 Sat by Pulse 98 Oximetry Medical Decision Making <Keila Medaows - Last Filed: 12/30/23 17:42> - Lab Data Result diagrams: 12/30/23 18:05 12/30/23 18:05 <Arley Steele - Last Filed: 12/30/23 19:53> - Medical Decision Making I completed the quick note portion of this chart signed Keila Meadows PA-C (Keila Meadows) Was pt. sent in by a medical professional or institution (, PA, BUS CLEANER, urgent care, hospital, or care home...) When possible be specific @ -No Did you speak to anyone other than the patient for history (EMS, parent, family, police, friend...)? What history was obtained from this source @ -No Did you review nursing and triage notes (agree or disagree)? Why? @ -I reviewed and agree with nursing and triage notes Were old charts reviewed (outside hosp., previous admission, EMS record, old EKG, old radiological studies, urgent care reports/EKG's, care home records)? Report findings @ -No old charts were reviewed Differential Diagnosis (chest pain, altered mental status, abdominal pain women, abdominal pain men, vaginal bleeding, musculoskeletal, weakness, fever, dyspnea, syncope, headache, dizziness, GI bleed, back pain, seizure, CVA, palpatations, mental health)? @ -Differential Weakness: Hypoglycemia, shock, sepsis, hyponatremia, anemia, infection, VT, ETOH, adverse medicine reaction, overdose, stroke, this is not meant to be an all-inclusive list. EKG interpreted by me (3pts min.). @ -My EKG interpretation: Ventricular rate 84, sinus rhythm,. 184, QRS 80, QTc 414. No MO prolongation, no QTC prolongation, no ST or T-wave changes noted. Overall, this EKG is unremarkable X-rays interpreted by me (1pt min.). @ -Chest x-ray is unremarkable CT interpreted by me (1pt min.). @ -None done U/S interpreted by me (1pt. min.). @ -None done What testing was considered but not performed or refused? (CT, X-rays, U/S, labs)? Why? @ -None What meds were considered but not given or refused? Why? @ -None Was smoking cessation discussed for >3mins.? @ -No Were there social determinants of health that impacted care today? How? (Homelessness, low income, unemployed, alcoholism, drug addiction, transporta tion, low edu. Level, literacy, decrease access to med. care, halfway, rehab)? @ -No Was there de-escalation of care discussed even if they declined (Discuss DNR or withdrawal of care, Hospice)? DNR status @ -No What co-morbidities impacted this encounter? (DM, HTN, Smoking, COPD, CAD, Cancer, CVA, ARF, Chemo, Hep., AIDS, mental health diagnosis, sleep apnea, morbid obesity)? @ -None Was patient admitted / discharged? Hospital course, mention meds given and route, prescriptions, significant lab abnormalities, going to OR and other pertinent info. @ -78-year-old female presents emergency department weakness she has extensive history of myasthenia gravis. Vital signs upon arrival are within acceptable limits. Laboratory evaluation obtained. Mild lactic acidosis 2.2 with a UTI. Did you discuss the management of the patient with other professionals (professionals i.e. , PA, BUS CLEANER, lab, RT, psych nurse, manager social, bottle carrier, teacher, financial services officer, family service caseworker)? Give summary @ -Discussed with Dr. Hartmann for admission. Requests neurology be consulted for myasthenia gravis Was critical care preformed (if so, how long)? @ -No Undiagnosed new problem with uncertain prognosis? @ -No Drug Therapy requiring intensive monitoring for toxicity (Heparin, Nitro, Insulin, Cardizem)? @ -No Were any procedures done? @ -No Diagnosis/symptom? Acute, or Chronic, or Acute on Chronic? Uncomplicated (without systemic symptoms) or Complicated (systemic symptoms)? @ -Weakness, history of myasthenia gravis Side effects of treatment? @ -No Exacerbation, Progression, or Severe Exacerbation? @ -No Poses a threat to life or bodily function? How? (Chest pain, USA, VT, pneumonia, PE, COPD, DKA, ARF, appy, cholecystitis, CVA, Diverticulitis, Homicidal, Suicidal, threat to staff... and all critical care pts) @ -yes (Arley Steele) - Lab Data Lab Results 12/30/23 12/30/23 12/30/23 Range/Units 17:42 18:05 18:05 WBC 9.1 (3.8-10.6) k/uL RBC 4.08 (3.80-5.40) m/uL Hgb 11.9 (11.4-16.0) gm/dL Hct 35.5 (34.0-46.0) % MCV 87.0 (80.0-100.0) fL MCH 29.2 (25.0-35.0) pg MCHC 33.6 (31.0-37.0) g/dL RDW 14.0 (11.5-15.5) % Plt Count 357 (150-450) k/uL MPV 8.9 Neutrophils % 89 % Lymphocytes % 6 % Monocytes % 3 % Eosinophils % 1 % Basophils % 0 % Neutrophils # 8.1 H (1.3-7.7) k/uL Lymphocytes # 0.5 L (1.0-4.8) k/uL Monocytes # 0.3 (0-1.0) k/uL Eosinophils # 0.1 (0-0.7) k/uL Basophils # 0.0 (0-0.2) k/uL PT 11.1 (10.0-12.5) sec INR 1.0 (<1.2) APTT 25.4 (22.0-30.0) sec Sodium (137-145) mmol/L Potassium (3.5-5.1) mmol/L Chloride (98-107) mmol/L Carbon Dioxide (22-30) mmol/L Anion Gap mmol/L BUN (7-17) mg/dL Creatinine (0.52-1.04) mg/dL Est GFR (CKD-EPI)AfAm (>60 ml/min/1.73 sqM) Est GFR (CKD-EPI)NonAf (>60 ml/min/1.73 sqM) Glucose (74-99) mg/dL Plasma Lactic Acid Stevie (0.7-2.0) mmol/L Calcium (8.4-10.2) mg/dL Total Bilirubin (0.2-1.3) mg/dL AST (14-36) U/L ALT (4-34) U/L Alkaline Phosphatase (38-126) U/L Troponin I (0.000-0.034) ng/mL Total Protein (6.3-8.2) g/dL Albumin (3.5-5.0) g/dL Urine Color Yellow Urine Appearance Cloudy H (Clear) Urine pH 6.0 (5.0-8.0) Ur Specific [place] 1.015 (1.001-1.035) Urine Protein 1+ H (Negative) Urine Glucose (UA) Negative (Negative) Urine Ketones Negative (Negative) Urine Blood Negative (Negative) Urine Nitrite Positive H (Negative) Urine Bilirubin Negative (Negative) Urine Urobilinogen <2.0 (<2.0) mg/dL Ur Leukocyte Esterase Large H (Negative) Urine RBC 3 (0-5) /hpf Urine WBC 107 H (0-5) /hpf Urine WBC Clumps Few H (None) /hpf Ur Squamous Epith Cells 1 (0-4) /hpf Urine Bacteria Many H (None) /hpf Urine Mucus Occasional H (None) /hpf 12/30/23 12/30/23 12/30/23 Range/Units 18:05 18:05 18:05 WBC (3.8-10.6) k/uL RBC (3.80-5.40) m/uL Hgb (11.4-16.0) gm/dL Hct (34.0-46.0) % MCV (80.0-100.0) fL MCH (25.0-35.0) pg MCHC (31.0-37.0) g/dL RDW (11.5-15.5) % Plt Count (150-450) k/uL MPV Neutrophils % % Lymphocytes % % Monocytes % % Eosinophils % % Basophils % % Neutrophils # (1.3-7.7) k/uL Lymphocytes # (1.0-4.8) k/uL Monocytes # (0-1.0) k/uL Eosinophils # (0-0.7) k/uL Basophils # (0-0.2) k/uL PT (10.0-12.5) sec INR (<1.2) APTT (22.0-30.0) sec Sodium 135 L (137-145) mmol/L Potassium 3.4 L (3.5-5.1) mmol/L Chloride 104 (98-107) mmol/L Carbon Dioxide 21 L (22-30) mmol/L Anion Gap 10 mmol/L BUN 22 H (7-17) mg/dL Creatinine 1.00 (0.52-1.04) mg/dL Est GFR (CKD-EPI)AfAm 62 (>60 ml/min/1.73 sqM) Est GFR (CKD-EPI)NonAf 54 (>60 ml/min/1.73 sqM) Glucose 118 H (74-99) mg/dL Plasma Lactic Acid Stevie 2.2 H* (0.7-2.0) mmol/L Calcium 8.5 (8.4-10.2) mg/dL Total Bilirubin 0.3 (0.2-1.3) mg/dL AST 26 (14-36) U/L ALT 17 (4-34) U/L Alkaline Phosphatase 101 (38-126) U/L Troponin I <0.012 (0.000-0.034) ng/mL Total Protein 6.7 (6.3-8.2) g/dL Albumin 3.6 (3.5-5.0) g/dL Urine Color Urine Appearance (Clear) Urine pH (5.0-8.0) Ur Specific [place] (1.001-1.035) Urine Protein (Negative) Urine Glucose (UA) (Negative) Urine Ketones (Negative) Urine Blood (Negative) Urine Nitrite (Negative) Urine Bilirubin (Negative) Urine Urobilinogen (<2.0) mg/dL Ur Leukocyte Esterase (Negative) Urine RBC (0-5) /hpf Urine WBC (0-5) /hpf Urine WBC Clumps (None) /hpf Ur Squamous Epith Cells (0-4) /hpf Urine Bacteria (None) /hpf Urine Mucus (None) /hpf Disposition <Keila Meadows - Last Filed: 12/30/23 17:42> Decision Time: 19:53 <Arley Steele - Last Filed: 12/30/23 19:53> Clinical Impression: Weakness Disposition: ADMITTED IP TO THIS [facility] Condition: Fair Referrals: Alexander Bal DO [Primary Care Provider] - 1-2 days
[2023-12-30 18:20] LABS: Basophils % (A) 0 %; Eosinophils # (A) 0.1 k/uL (0-0.7); Eosinophils % (A) 1 %; HCT 35.5 % (34.0-46.0); HGB 11.9 gm/dL (11.4-16.0); Lymphocytes # (A) 0.5 k/uL (1.0-4.8); Lymphocytes % (A) 6 %; MCH 29.2 pg (25.0-35.0); MCHC 33.6 g/dL (31.0-37.0); Mean Platelet Volume 8.9; Monocytes # (A) 0.3 k/uL (0-1.0); Monocytes % (A) 3 %; Neutrophils # (A) 8.1 k/uL (1.3-7.7); Neutrophils % (A) 89 %; Platelet Count 357 k/uL (150-450); RBC 4.08 m/uL (3.80-5.40); WBC 9.1 k/uL (3.8-10.6)
[2023-12-30 18:29] LABS: Partial Thromboplastin Time 25.4 sec (22.0-30.0); Prothrombin Time 11.1 sec (10.0-12.5)
[2023-12-30 18:31] LABS: ALT 17 U/L (4-34); AST 26 U/L (14-36); African American GFR (CKD) 62 (>60 ml/min/1.73 sqM); Albumin 3.6 g/dL (3.5-5.0); Alkaline Phosphatase 101 U/L (38-126); Anion Gap 10 mmol/L; Blood Urea Nitrogen 22 mg/dL (7-17); Calcium 8.5 mg/dL (8.4-10.2); Carbon Dioxide 21 mmol/L (22-30); Chloride 104 mmol/L (98-107); Glucose 118 mg/dL (74-99); Non-African American GFR(CKD) 54 (>60 ml/min/1.73 sqM); Potassium 3.4 mmol/L (3.5-5.1); Sodium 135 mmol/L (137-145); Total Bilirubin 0.3 mg/dL (0.2-1.3); Total Protein 6.7 g/dL (6.3-8.2)
[2023-12-30 19:15] LABS: Appearance,Urine Cloudy (Clear); Bacteria,Urine Many /hpf; Bilirubin,Urine Negative (Negative); Blood,Urine Negative (Negative); Color,Urine Yellow; Glucose,Urine (UA) Negative (Negative); Ketones,Urine Negative (Negative); Leukocyte Esterase,Urine Large (Negative); Mucus,Urine Occasional /hpf; Nitrite,Urine Positive (Negative); Protein,Urine 1+ (Negative); RBC,Urine 3 /hpf (0-5); Specific Gravity,Urine 1.015 (1.001-1.035); Squamous Epithelial Cell,Urine 1 /hpf (0-4); Urobilinogen,Urine <2.0 mg/dL (<2.0); WBC,Urine 107 /hpf (0-5)
--- NOTE | 2023-12-30 19:42 | XR ---
EXAMINATION TYPE: XR chest 2V DATE OF EXAM: 12/30/2023 COMPARISON: 09/19/2023 INDICATION: CORBY TECHNIQUE: Frontal and lateral views of the chest are obtained. FINDINGS: The heart size is normal. The pulmonary vasculature is prominent. The lungs are clear. There is compression deformity with vertebroplasty lower lobe thoracic spine. Spondylosis is present. There is increased AP diameter. IMPRESSION: 1. No acute pulmonary process. 2. Senile emphysematous changes redemonstrated 3. Correlate for volume overload
[2023-12-30] MEDS ORDERED: NALOXONE 0.4 MG/ML 1 ML VIAL IV PRN (19:49)
[2023-12-30] MEDS: SODIUM CHLORIDE 0.9% 1,000 ML IV SCH (20:08)
[2023-12-31] MEDS: ENOXAPARIN 40 MG/0.4 ML SYRINGE SQ SCH (12:10)
[2023-12-31] MEDS: LACTATED RINGERS 1,000 ML IV SCH (12:10)
[2023-12-31] MEDS ORDERED: TEMAZEPAM 15 MG CAP PO PRN (14:23)
[2023-12-31] MEDS ORDERED: CALCIUM CARBONATE 500 MG CHEWABLE PO PRN (14:23)
[2023-12-31] MEDS ORDERED: LACTULOSE 20 GM/30 ML CUP PO PRN (14:23)
[2023-12-31] MEDS ORDERED: ALPRAZolam 0.25 MG TAB PO PRN (14:23)
[2023-12-31] MEDS: PANTOPRAZOLE 40 MG TABLET PO SCH (16:31)
[2023-12-31] MEDS: DULoxetine HCL 60 MG CAPSULE.DR PO SCH (16:31)
--- NOTE | 2023-12-31 17:32 | P.CNNES ---
History of Present Illness Consult date: 12/31/23 Requesting physician: Arley Steele Reason for Consult: myasthenia gravis History of Present Illness: This is a 78-year-old woman with history of myasthenia gravis, urinary tract infection previous diagnosis of sarcoidosis lupus who presented emergency department because of generalized weakness. She stated that she has been having generalized weakness for the past few weeks maybe 2 to 3 weeks. She states that she has ptosis of her eyes that is intermittent and she feels possibly with exertion. Also she has shortness of breath with exertion. She denies any difficulty swallowing. Patient was seen initially by Dr. Hein on 09/20/2023 for myasthenia gravis and he recommended IVIG but she further workup. She had urinary tract infection and it seems that her symptoms improved after treatment of urinary tract infection and we recommended that the patient to follow-up with a neurologist as an outpatient for further evaluation. It seems that the patient has not followed up with a neurologist as an outpatient. In the past seems to the patient was evaluated by a local neurologist who referred and she was referred to neuromuscular specialist at [place] and was on Pyridostigmine but had side-effects. Also had side-effects to Prednisone. Then was evaluated by Dr. Conti at [facility] on IVIG 60g every 2 week from 2018 until discontinued 06/2020 while COVID was going on and ever since she is not followed up with a neurologist and has not been treated for myasthenia gravis. Please refer to Dr. Hein's note on 09/20/2023 for further details. Some of the workup during this hospital visit consisted of: Lactic acid is 2.2 Urinalysis seems suspicious for acute urinary tract infection Her acetylcholine receptor antibody 09/2023 is 0.32 which is considered equivocal rheumatoid factor is less than 15 Review of Systems The positive and negative as per HPI. Past Medical History Past Medical History: Asthma, Respiratory Disorder, Syncope Additional Past Medical History / Comment(s): hx of falls, pt states last fall was in feb 2023. Hx MYASTHENIA GRAVIS, LUPAS,SARCOID OF LUNG,AUTOIMMUME OF THE SKIN,HASHIMOTOS, 2 collapse vertabrae, urinary leakage. History of Any Multi-Drug Resistant Organisms: None Reported Past Surgical History: Cholecystectomy, Tonsillectomy Additional Past Surgical History / Comment(s): THROIDECTOMY, esophagus narrowing/had procedure to stretch jan 2018 Past Anesthesia/Blood Transfusion Reactions: Motion Sickness Past Psychological History: Depression Smoking Status: Never smoker Past Alcohol Use History: None Reported Past Drug Use History: None Reported - Past Family History Father Family Medical History: CVA/TIA Additional Family Medical History / Comment(s): at age 37 w/ CVA Mother Family Medical History: Congestive Heart Failure (CHF), Osteoarthritis (OA) Additional Family Medical History / Comment(s): at age 82 Medications and Allergies Home Medications Medication Instructions Recorded Confirmed Type No Known Home Medications 12/30/23 12/30/23 History Allergies Allergy/AdvReac Type Severity Reaction Status Date / Time adhesive tape Allergy red Verified 12/30/23 20:25 skin,ok to use paper tape codeine Allergy Rash/Hives Verified 12/30/23 20:25 gabapentin Allergy tongue Verified 12/30/23 20:25 numbness Penicillins Allergy Rash/Hives Verified 12/30/23 20:25 quinine Allergy Unknown Verified 12/30/23 20:25 Sulfa (Sulfonamide Allergy Rash/Hives Verified 12/30/23 20:25 Antibiotics) aspirin AdvReac doesn't Verified 12/30/23 20:25 take with eliquis digoxin AdvReac Rapid Verified 12/30/23 20:25 Heart Rate diphenhydramine AdvReac Unknown Verified 12/30/23 20:25 [From Benadryl] Physical Examination - Vital Signs Vital Signs: Vital Signs Temp Pulse Pulse Resp BP BP Pulse Ox 12/31/23 12:09 97.6 F 72 16 105/61 97 12/31/23 07:02 98.9 F 81 16 121/69 96 12/31/23 01:22 97.6 F 85 16 117/70 96 12/30/23 21:53 97.9 F 70 18 108/68 99 12/30/23 21:38 97.8 F 76 18 126/69 98 12/30/23 20:01 74 18 102/58 99 12/30/23 17:12 97.8 F 61 18 124/73 98 Intake and Output 12/31/23 12/31/23 12/31/23 06:59 14:59 22:59 Other: Voiding Method Diaper Incontinent # Voids 1 3 GENERAL: The patient is lying in bed and is not in acute distress. LUNG: Clear to auscultation bilaterally no wheezing noted throughout. Not labored breathing. NEUROLOGICAL: Higher mental function: The patient is awake, alert, oriented to self, place and time. Patient is following commands. No aphasia and no neglect. Cranial nerves: The pupils are round, equal and reactive to light and accommodation. Visual chiang are full to confrontation throughout. Extraocular movement is intact no nystagmus is noted. Facial sensation is normal to touch throughout. The facial strength is normal throughout. Hearing is mildly decreased bilaterally to hand rub. Tongue is midline and moved [id number] without any difficulty. No dysarthria is noted. Shoulder shrug is normal bilaterally. 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 Lowers are limited because of pain but is at least 4-4+. Normal tone and bulk. Cerebellum: Normal finger to nose bilaterally. Sensation: Sensation is normal to touch throughout. Reflexes (right/left): 2+ throughout. Plantars are mute bilaterally. Results - Laboratory Findings CBC and BMP: 12/30/23 18:05 12/30/23 18:05 Abnormal Lab Findings: Abnormal Labs 12/30/23 12/30/23 12/30/23 17:42 18:05 18:05 Neutrophils # 8.1 H Lymphocytes # 0.5 L Sodium 135 L Potassium 3.4 L Carbon Dioxide 21 L BUN 22 H Glucose 118 H Plasma Lactic Acid Stevie Urine Appearance Cloudy H Urine Protein 1+ H Urine Nitrite Positive H Ur Leukocyte Esterase Large H Urine WBC 107 H Urine WBC Clumps Few H Urine Bacteria Many H Urine Mucus Occasional H 12/30/23 18:05 Neutrophils # Lymphocytes # Sodium Potassium Carbon Dioxide BUN Glucose Plasma Lactic Acid Stevie 2.2 H* Urine Appearance Urine Protein Urine Nitrite Ur Leukocyte Esterase Urine WBC Urine WBC Clumps Urine Bacteria Urine Mucus Assessment and Plan Assessment: This is a 78-year-old woman with history of myasthenia gravis who was managed by neuromuscular specialist over at [facility] and had side effects to Mestinon and Prednison then she was managed at [facility] and was getting IVIG until 2020 since [facility] and has not followed-up with neurologist who is having generalized weakness for past 2-3 weeks with intermittent diplopia and SOB with exertion. In 09/20/2023 she had similar presentation but refused management and at that time she had UTI and felt improvement after UTI. Generalized weakness with intermittent diplopia and exertional shortness of breath seems due to worsening of her myasthenia gravis/MG exacerbation. So appears she has acute urinary tract infection which can worsen her symptoms as well Probable acute UTI History of UTI Plan: Patient was in agreement on IVIG so we will give the patient 2 g per keg over 5 days Her acetylcholine receptor antibody on 09/20/1999 24.32 that was ordered by Dr. Hein because of patient wishes for lab workup and is concerned equivocal. But in the past she was evaluated by neuromuscular specialist at [facility] as well as she was managed by Dr. Conti at [facility] and was on IVIG 60g every 2 weeks and recommend to continue following-up with them. To follow-up with them within 1 to 2 weeks. If unable then recommend to follow-up with a local neurologist. She is on ceftriaxone for acute UTI that was started by the primary attending PT OT is consulted Will defer the rest of the medical management to the primary team Discussed with patient and primary team. Thank for the consult Time with Patient: Greater than 30
--- NOTE | 2023-12-31 18:32 | P.HPIM ---
History of Present Illness H&P Date: 12/31/23 Chief Complaint: Weak and tired This is a pleasant 78-year-old patient, follows with Dr. Alexander Duarte. Patient does have a legal guardian. Chronic stable medical conditions include lupus, sarcoid of the lung, autoimmune disease of the skin, Tere's, chronic urine incontinence. Patient now presents for last 2 weeks feeling rather weak. To the point not even able to get out of bed. Appetite is gone down. Denies any fever and chills. Discomfort plaint of discomfort/burning in the urine. Sometime ago patient did follow-up with neurologist Dr. Sanhcez. Patient was then sent to [facility] where she saw Dr. Conti and for her myasthenia gravis she was given IV immunoglobulins for about 2 years. Then COVID hit and she was not able to go to [place] anymore. Subsequently she tried to follow-up with different neurologist in town was unable to get an appointment. Not even with Dr. Sanchez. She mentions that once her house was found in disarray and that is when she got a legal guardian. Review of systems: GEN.: Tired EYES: None HEENT: None NECK: None RESPIRATORY: None CARDIOVASCULAR: None GASTROINTESTINAL: None GENITOURINARY: [Urine incontinence MUSCULOSKELETAL: Joint pains LYMPHATICS: None HEMATOLOGICAL: None PSYCHIATRY: None NEUROLOGICAL: None Social history: Lives alone. Assisted living. Has a public l guardian. No smoking no alcohol Physical examination: VITAL SIGNS: 97.8, 61, 18, 124 x 73, 98% room air GENERAL: BMI 35.9, sitting at the edge of the bed tired. EYES: Pupils equal. Conjunctiva brenna l. HEENT: External appearance of nose and ears normal, oral cavity grossly normal. NECK: JVD not raised; masses not palpable. HEART: First and second heart sounds are normal; no edema. LUNGS: Respiratory rate normal; clear to auscultation. ABDOMEN: Soft, nontender, liver spleen not palpable, no masses palpable. PSYCH: Alert and oriented x3; mood and affect brenna l. MUSCULOSKELETAL:No Clubbing/cyanosis;muscles-grossly intact. OA NEUROLOGICAL: Cranial nerves grossly intact; no facial asymmetry, power and sensation grossly intact. LYMPHATICS: No lymph nodes palpable in the axilla and neck Assessment plan: -Acute myasthenia gravis exacerbation. Patient had previously been getting IV immunoglobulin every 2 weeks prior to COVID. Was followed by Dr. Sanchez locally and then was followed up by Dr. Conti or [facility]. Not able to follow-up with any neurologist and is down for the last 2 years. Last 2 weeks has become very weak not even able to get out of bed. Neurology consulted -Acute UTI with cystitis IV ceftriaxone -Acute medical debility from above -Primary osteoarthritis Tylenol as needed -Full code -Public guardian Will have the floor contact patient's family doctor and obtain home medication list. Care was discussed the patient. Given the complexity and severity of patient's condition expect the patient to be in the hospital at least for 2 overnights Past Medical History Past Medical History: Asthma, Respiratory Disorder, Syncope Additional Past Medical History / Comment(s): hx of falls, pt states last fall was in feb 2023. Hx MYASTHENIA GRAVIS, LUPAS,SARCOID OF LUNG,AUTOIMMUME OF THE SKIN,HASHIMOTOS, 2 collapse vertabrae, urinary leakage. History of Any Multi-Drug Resistant Organisms: None Reported Past Surgical History: Cholecystectomy, Tonsillectomy Additional Past Surgical History / Comment(s): THROIDECTOMY, esophagus narrowing/had procedure to stretch jan 2018 Past Anesthesia/Blood Transfusion Reactions: Motion Sickness Past Psychological History: Depression Smoking Status: Never smoker Past Alcohol Use History: None Reported Past Drug Use History: None Reported - Past Family History Father Family Medical History: CVA/TIA Additional Family Medical History / Comment(s): at age 37 w/ CVA Mother Family Medical History: Congestive Heart Failure (CHF), Osteoarthritis (OA) Additional Family Medical History / Comment(s): at age 82 Medications and Allergies Home Medications Medication Instructions Recorded Confirmed Type No Known Home Medications 12/30/23 12/30/23 History Allergies Allergy/AdvReac Type Severity Reaction Status Date / Time adhesive tape Allergy red Verified 12/30/23 20:25 skin,ok to use paper tape codeine Allergy Rash/Hives Verified 12/30/23 20:25 gabapentin Allergy tongue Verified 12/30/23 20:25 numbness Penicillins Allergy Rash/Hives Verified 12/30/23 20:25 quinine Allergy Unknown Verified 12/30/23 20:25 Sulfa (Sulfonamide Allergy Rash/Hives Verified 12/30/23 20:25 Antibiotics) aspirin AdvReac doesn't Verified 12/30/23 20:25 take with eliquis digoxin AdvReac Rapid Verified 12/30/23 20:25 Heart Rate diphenhydramine AdvReac Unknown Verified 12/30/23 20:25 [From [facility]] Physical Exam Vitals: Vital Signs Temp Pulse Pulse Resp BP BP Pulse Ox 12/31/23 07:02 98.9 F 81 16 121/69 96 12/31/23 01:22 97.6 F 85 16 117/70 96 12/30/23 21:53 97.9 F 70 18 108/68 99 12/30/23 21:38 97.8 F 76 18 126/69 98 12/30/23 20:01 74 18 102/58 99 12/30/23 17:12 97.8 F 61 18 124/73 98 Intake and Output 12/30/23 12/31/23 12/31/23 22:59 06:59 14:59 Other: # Voids 1 Weight 72.575 kg Results CBC & Chem 7: 12/30/23 18:05 12/30/23 18:05 Labs: Abnormal Lab Results - Last 24 Hours (Table) 12/30/23 12/30/23 12/30/23 Range/Units 17:42 18:05 18:05 Neutrophils # 8.1 H (1.3-7.7) k/uL Lymphocytes # 0.5 L (1.0-4.8) k/uL Sodium 135 L (137-145) mmol/L Potassium 3.4 L (3.5-5.1) mmol/L Carbon Dioxide 21 L (22-30) mmol/L BUN 22 H (7-17) mg/dL Glucose 118 H (74-99) mg/dL Plasma Lactic Acid Stevie (0.7-2.0) mmol/L Urine Appearance Cloudy H (Clear) Urine Protein 1+ H (Negative) Urine Nitrite Positive H (Negative) Ur Leukocyte Esterase Large H (Negative) Urine WBC 107 H (0-5) /hpf Urine WBC Clumps Few H (None) /hpf Urine Bacteria Many H (None) /hpf Urine Mucus Occasional H (None) /hpf 12/30/23 Range/Units 18:05 Neutrophils # (1.3-7.7) k/uL Lymphocytes # (1.0-4.8) k/uL Sodium (137-145) mmol/L Potassium (3.5-5.1) mmol/L Carbon Dioxide (22-30) mmol/L BUN (7-17) mg/dL Glucose (74-99) mg/dL Plasma Lactic Acid Stevie 2.2 H* (0.7-2.0) mmol/L Urine Appearance (Clear) Urine Protein (Negative) Urine Nitrite (Negative) Ur Leukocyte Esterase (Negative) Urine WBC (0-5) /hpf Urine WBC Clumps (None) /hpf Urine Bacteria (None) /hpf Urine Mucus (None) /hpf Thrombosis Risk Factor Assmnt - Choose All That Apply Each Risk Factor Represents 3 Points: Age 75 years or older Thrombosis Risk Factor Assessment Total Risk Factor Score: 3 Thrombosis Risk Factor Assessment Level: Moderate Risk
[2023-12-31] MEDS: IMMUNE GLOBULIN (GAMMAGARD) 20 GM in EMPTY BAG 1 BAG IV ONE (20:45)
[2024-01-01] MEDS ORDERED: ACETAMINOPHEN TAB 325 MG TAB ONE (01:28)
[2024-01-01] MEDS: IMMUNE GLOBULIN (GAMMAGARD) 5 GM in EMPTY BAG 1 BAG IV ONE ×2 (04:14→17:07)
--- NOTE | 2024-01-01 13:28 | P.PN ---
Progress Note - Text Progress Note Date: 01/01/24 Chief Complaint: Weak and tired This is a pleasant 78-year-old patient, follows with Dr. Alexander Duarte. Patient does have a legal guardian. Chronic stable medical conditions include lupus, sarcoid of the lung, autoimmune disease of the skin, Tere's, chronic urine incontinence. Patient now presents for last 2 weeks feeling rather weak. To the point not even able to get out of bed. Appetite is gone down. Denies any fever and chills. Discomfort plaint of discomfort/burning in the urine. Sometime ago patient did follow-up with neurologist Dr. Sanchez. Patient was then sent to [facility] where she saw Dr. Conti and for her myasthenia gravis she was given IV immunoglobulins for about 2 years. Then COVID hit and she was not able to go to [place] anymore. Subsequently she tried to follow-up with different neurologist in town was unable to get an appointment. Not even with Dr. Sanchez. She mentions that once her house was found in disarray and that is when she got a legal guardian. December 31: Patient be given IV immunoglobulin per Dr. Nielson from neurology. Patient had questions today asked explained at length. Also discussed about possible rehab depending on how she does. Will receive 5 days total of globulins. PT OT on the case. Have the patient up in a chair.. Active Medications Acetaminophen (Acetaminophen Tab 325 Mg Tab) 650 mg PO Q6HR PRN PRN Reason: Mild Pain or Fever > 100.5 Alprazolam (Alprazolam 0.25 Mg Tab) 0.25 mg PO Q6HR PRN PRN Reason: Anxiety Calcium Carbonate/Glycine (Calcium Carbonate 500 Mg Chewable) 1,000 mg PO Q4HR PRN PRN Reason: Dyspepsia Duloxetine HCl (Duloxetine Hcl 60 Mg Capsule.) 60 mg PO DAILY [facility] Last Admin: 01/01/24 09:46 Dose: 60 mg Enoxaparin Sodium (Enoxaparin 40 Mg/0.4 Ml Syringe) 40 mg SQ DAILY [facility] Last Admin: 01/01/24 09:46 Dose: 40 mg Lactated Ringer's (Lactated Ringers) 1,000 mls @ 125 mls/hr IV .Q8H [facility] Last Admin: 01/01/24 06:09 Dose: 125 mls/hr Ceftriaxone Sodium 1 gm/ (Sodium Chloride) 50 mls @ 100 mls/hr IVPB Q24HR [facility]; Protocol Last Admin: 01/01/24 09:46 Dose: 100 mls/hr Immune Globulin 20 gm/ IV (Solution) 200 mls @ 0 mls/hr IV .Q0M ONE; Protocol Stop: 01/02/24 12:01 Immune Globulin 20 gm/ IV (Solution) 200 mls @ 0 mls/hr IV .Q0M ONE; Protocol Stop: 01/03/24 12:01 Immune Globulin 20 gm/ IV (Solution) 200 mls @ 0 mls/hr IV .Q0M ONE; Protocol Stop: 01/04/24 12:01 Immune Globulin 5 gm/ IV (Solution) 50 mls @ 0 mls/hr IV .Q0M ONE; Protocol Stop: 01/02/24 12:01 Immune Globulin 5 gm/ IV (Solution) 50 mls @ 0 mls/hr IV .Q0M ONE; Protocol Stop: 01/03/24 12:01 Immune Globulin 5 gm/ IV (Solution) 50 mls @ 0 mls/hr IV .Q0M ONE; Protocol Stop: 01/04/24 12:01 Lactulose (Lactulose 20 Gm/30 Ml Cup) 20 gm PO DAILY PRN PRN Reason: Constipation Naloxone HCl (Naloxone 0.4 Mg/Ml 1 Ml Vial) 0.2 mg IV Q2M PRN PRN Reason: Opioid Reversal Ondansetron HCl (Ondansetron 4 Mg/2 Ml Vial) 4 mg IVP Q8HR PRN PRN Reason: Nausea And Vomiting Pantoprazole Sodium (Pantoprazole 40 Mg Tablet) 40 mg PO AC-BRKFST [facility] Last Admin: 01/01/24 06:09 Dose: 40 mg Temazepam (Temazepam 15 Mg Cap) 15 mg PO HS PRN PRN Reason: Insomnia Social history: Lives alone. Assisted living. Has a public l guardian. No smoking no alcohol Physical examination: VITAL SIGNS: 97.8, 62, 16, 117/69, 94% room air GENERAL: Resting in bed. EYES: Pupils equal. Conjunctiva brenna l. HEENT: External appearance of nose and ears normal, oral cavity grossly normal. NECK: JVD not raised; masses not palpable. HEART: First and second heart sounds are normal; no edema. LUNGS: Respiratory rate normal; clear to auscultation. ABDOMEN: Soft, nontender, liver spleen not palpable, no masses palpable. PSYCH: Alert and oriented x3; mood and affect brenna l. MUSCULOSKELETAL:No Clubbing/cyanosis;muscles-grossly intact. OA Assessment plan: -Acute myasthenia gravis exacerbation. Patient had previously been getting IV immunoglobulin every 2 weeks prior to COVID. Was followed by Dr. Sanchez locally and then was followed up by Dr. Conti or [facility]. Not able to follow-up with any neurologist and is down for the last 2 years. Last 2 weeks has become very weak not even able to get out of bed. Being followed by neurology Dr. NIELSON: Started on immunoglobulins for total of 5 days -Acute UTI with cystitis IV ceftriaxone -Acute medical debility from above, patient is unable to even get out of bed on presentation PT OT -Primary osteoarthritis Tylenol as needed -Hypokalemia, replace -Full code -Public guardian Discussed at length with the patient. Continue immunoglobulins. IV ceftriaxone. Past Medical History Past Medical History: Asthma, Respiratory Disorder, Syncope Additional Past Medical History / Comment(s): hx of falls, pt states last fall was in feb 2023. Hx MYASTHENIA GRAVIS, LUPAS,SARCOID OF LUNG,AUTOIMMUME OF THE SKIN,HASHIMOTOS, 2 collapse vertabrae, urinary leakage. History of Any Multi-Drug Resistant Organisms: None Reported Past Surgical History: Cholecystectomy, Tonsillectomy Additional Past Surgical History / Comment(s): THROIDECTOMY, esophagus narrowing/had procedure to stretch jan 2018 Past Anesthesia/Blood Transfusion Reactions: Motion Sickness Past Psychological History: Depression Smoking Status: Never smoker Past Alcohol Use History: None Reported Past Drug Use History: None Reported
[2024-01-01] MEDS: POTASSIUM CHLORIDE ER 20 MEQ TAB.ER PO STA (14:17)
[2024-01-01] MEDS: IMMUNE GLOBULIN (GAMMAGARD) 20 GM in EMPTY BAG 1 BAG IV ONE (14:48)
--- NOTE | 2024-01-01 17:06 | P.PN ---
Subjective Progress Note Date: 01/01/24 I am following up with the patient and nurse the patient does not want to resume with IVIG. 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 Upon seeing the patient she denies of any new neurological issues. She is getting IVIG and today is day 2 out of 5. She states in the past she is on a higher dose of IVIG. Objective - Vital Signs Vital signs: Vital Signs Temp 97.8 F 01/01/24 11:40 Pulse 62 01/01/24 11:40 Resp 16 01/01/24 11:40 BP 117/69 01/01/24 11:40 Pulse Ox 94 L 01/01/24 14:23 FiO2 Intake & Output 12/31/23 01/01/24 01/01/24 18:59 06:59 18:59 Intake Total 920 7.467 102.3 Balance 920 7.467 102.3 Intake: Intake, IV Titration 920 7.467 102.3 Amount Immune Globulin ( 7.467 Gammagard) 20 gm In Empty Bag 1 bag @ Titrate IV . Q0M ONE Rx#:[id number] Immune Globulin ( 102.3 Gammagard) 20 gm In Empty Bag 1 bag @ Titrate IV . Q0M ONE Rx#:[id number] Lactated Ringers 1,000 ml 750 @ 125 mls/hr IV .Q8H [facility] Rx#:[id number] Sodium Chloride 0.9% 1, 120 000 ml @ 20 mls/hr IV . Q24H [facility] Rx#:[id number] cefTRIAXone 1 gm In 50 Sodium Chloride 0.9% 50 ml @ 100 mls/hr IVPB Q24HR [facility] Rx#:[id number] Other: Voiding Method Diaper Diaper Diaper Incontinent Incontinent Incontinent # Voids 3 2 2 - Exam GENERAL: The patient is sitting up in a chair and is not in acute distress. NEUROLOGICAL: Higher mental function: The patient is awake, alert, oriented to self, place and time. Patient is following commands. No aphasia and no neglect. Cranial nerves: The pupils are round, equal and reactive to light and accommodation. Visual chiang are full to confrontation throughout. Extraocular movement is intact no nystagmus is noted. Facial sensation is normal to touch throughout. The facial strength is normal throughout. Hearing is mildly decrea sed bilaterally to hand rub. Tongue is midline and moved [id number] without any difficulty. No dysarthria is noted. Shoulder shrug is normal bilaterally. Motor: The strength is uppers are 4+, hand table filler are 4+ to 4-. Lowers are limited because of pain but is at least 4-4+. Normal tone and bulk. Cerebellum: Normal finger to nose bilaterally. Sensation: Sensation is normal to touch throughout. Reflexes (right/left): 2+ throughout. Plantars are mute bilaterally. Some of the workup during this hospital visit consisted of: Lactic acid is 2.2 Urinalysis seems suspicious for acute urinary tract infection Her acetylcholine receptor antibody 09/2023 is 0.32 which is considered equiv ocal rheumatoid factor is less than 15 - Labs CBC & Chem 7: 12/30/23 18:05 12/30/23 18:05 Assessment and Plan Assessment: This is a 78-year-old woman with history of myasthenia gravis who was managed by neuromuscular specialist over at [facility] and had side effects to Mestinon and Prednison then she was managed at [facility] and was getting IVIG until 2020 since [facility] and has not followed-up with neurologist who is having generalized weakness for past 2-3 weeks with intermittent diplopia and SOB with exertion. In 09/20/2023 she had similar presentation but refused management and at that time she had UTI and felt improvement after UTI. Generalized weakness with intermittent diplopia and exertional shortness of breath seems due to worsening of her myasthenia gravis/MG exacerbation. So appears she has acute urinary tract infection which can worsen her symptoms as well Probable acute UTI History of UTI History of medication non-compliance Plan: Patient was in agreement on IVIG so we will give the patient 2 g/kg over 5 days. Today is day 2. Her acetylcholine receptor antibody on 09/20/1999 24.32 that was ordered by Dr. Hein because of patient wishes for lab workup and is concerned equivocal. But in the past she was evaluated by neuromuscular specialist at [facility] as well as she was managed by Dr. Conti at [facility] and was on IVIG 60g every 2 weeks and recommend to continue following-up with them. To follow-up with them within 1 to 2 weeks. If unable then recommend to follow-up with a local neurologist. She is on ceftriaxone for acute UTI that was started by the primary attending PT OT is consulted Will defer the rest of the medical management to the primary team Discussed with patient and her nurse. Time with Patient: Less than 30
[2024-01-01] MEDS: polyethylene glycoL 3350 17 GM POWD.PACK PO ONE (21:03)
[2024-01-02 07:39] LABS: African American GFR (CKD) 85 (>60 ml/min/1.73 sqM); Anion Gap 5 mmol/L; Blood Urea Nitrogen 9 mg/dL (7-17); Calcium 8.4 mg/dL (8.4-10.2); Carbon Dioxide 24 mmol/L (22-30); Chloride 108 mmol/L (98-107); Glucose 85 mg/dL (74-99); Non-African American GFR(CKD) 74 (>60 ml/min/1.73 sqM); Potassium 4.1 mmol/L (3.5-5.1); Sodium 137 mmol/L (137-145)
[2024-01-02] MEDS: IMMUNE GLOBULIN (GAMMAGARD) 20 GM in EMPTY BAG 1 BAG IV ONE (13:20)
[2024-01-02] MEDS: IMMUNE GLOBULIN (GAMMAGARD) 5 GM in EMPTY BAG 1 BAG IV ONE (13:22)
--- NOTE | 2024-01-02 15:31 | P.PN ---
Progress Note - Text Progress Note Date: 01/02/24 Chief Complaint: Weak and tired This is a pleasant 78-year-old patient, follows with Dr. Alexander Duarte. Patient does have a legal guardian. Chronic stable medical conditions include lupus, sarcoid of the lung, autoimmune disease of the skin, Tere's, chronic urine incontinence. Patient now presents for last 2 weeks feeling rather weak. To the point not even able to get out of bed. Appetite is gone down. Denies any fever and chills. Discomfort plaint of discomfort/burning in the urine. Sometime ago patient did follow-up with neurologist Dr. Sanchez. Patient was then sent to [facility] where she saw Dr. Conti and for her myasthenia gravis she was given IV immunoglobulins for about 2 years. Then COVID hit and she was not able to go to [place] anymore. Subsequently she tried to follow-up with different neurologist in town was unable to get an appointment. Not even with Dr. Sanchez. She mentions that once her house was found in disarray and that is when she got a legal guardian. December 31: Patient be given IV immunoglobulin per Dr. Nielson from neurology. Patient had questions today asked explained at length. Also discussed about possible rehab depending on how she does. Will receive 5 days total of globulins. PT OT on the case. Have the patient up in a chair.. January 01: Patient getting IV immunoglobulins. Has been complaining of some chest pain. EKG troponin ordered, both unremarkable spoke to the nurse to have the patient sit up in a chair. Chest pain likely from anxiety. Patient rather anxious. Discussed Active Medications Acetaminophen (Acetaminophen Tab 325 Mg Tab) 650 mg PO Q6HR PRN PRN Reason: Mild Pain or Fever > 100.5 Alprazolam (Alprazolam 0.25 Mg Tab) 0.25 mg PO Q6HR PRN PRN Reason: Anxiety Calcium Carbonate/Glycine (Calcium Carbonate 500 Mg Chewable) 1,000 mg PO Q4HR PRN PRN Reason: Dyspepsia Duloxetine HCl (Duloxetine Hcl 60 Mg Capsule.) 60 mg PO DAILY [facility] Last Admin: 01/02/24 09:31 Dose: 60 mg Enoxaparin Sodium (Enoxaparin 40 Mg/0.4 Ml Syringe) 40 mg SQ DAILY [facility] Last Admin: 01/02/24 09:30 Dose: 40 mg Lactated Ringer's (Lactated Ringers) 1,000 mls @ 125 mls/hr IV .Q8H [facility] Last Admin: 01/02/24 13:21 Dose: Not Given Ceftriaxone Sodium 1 gm/ (Sodium Chloride) 50 mls @ 100 mls/hr IVPB Q24HR [facility]; Protocol Last Admin: 01/02/24 09:31 Dose: 100 mls/hr Immune Globulin 20 gm/ IV (Solution) 200 mls @ 0 mls/hr IV .Q0M ONE; Protocol Stop: 01/03/24 12:01 Immune Globulin 20 gm/ IV (Solution) 200 mls @ 0 mls/hr IV .Q0M ONE; Protocol Stop: 01/04/24 12:01 Immune Globulin 5 gm/ IV (Solution) 50 mls @ 0 mls/hr IV .Q0M ONE; Protocol Stop: 01/03/24 12:01 Immune Globulin 5 gm/ IV (Solution) 50 mls @ 0 mls/hr IV .Q0M ONE; Protocol Stop: 01/04/24 12:01 Lactulose (Lactulose 20 Gm/30 Ml Cup) 20 gm PO DAILY PRN PRN Reason: Constipation Naloxone HCl (Naloxone 0.4 Mg/Ml 1 Ml Vial) 0.2 mg IV Q2M PRN PRN Reason: Opioid Reversal Ondansetron HCl (Ondansetron 4 Mg/2 Ml Vial) 4 mg IVP Q8HR PRN PRN Reason: Nausea And Vomiting Pantoprazole Sodium (Pantoprazole 40 Mg Tablet) 40 mg PO -BRKFST [facility] Last Admin: 01/02/24 09:31 Dose: 40 mg Temazepam (Temazepam 15 Mg Cap) 15 mg PO HS PRN PRN Reason: Insomnia Social history: Lives alone. Assisted living. Has a public l guardian. No smoking no alcohol Physical examination: VITAL SIGNS: 97.9, 64, 16, 145 x 65, 96% room air GENERAL: Resting in bed. EYES: Pupils equal. Conjunctiva brenna l. HEENT: External appearance of nose and ears normal, oral cavity grossly normal. NECK: JVD not raised; masses not palpable. HEART: First and second heart sounds are normal; no edema. LUNGS: Respiratory rate normal; clear to auscultation. ABDOMEN: Soft, nontender, liver spleen not palpable, no masses palpable. PSYCH: Alert and oriented x3; mood and affect anxious MUSCULOSKELETAL:No Clubbing/cyanosis;muscles-grossly intact. OA INVESTIGATIONS, reviewed in the clinical context: Troponin I x 2 negative Sodium 137 potassium 4.1 creatinine 0.77. White count 9.1 hemoglobin 11.9 platelets 357 EKG tracing personally reviewed by me-normal sinus rhythm. PVC. Assessment plan: -Acute myasthenia gravis exacerbation. Patient had previously been getting IV immunoglobulin every 2 weeks prior to COVID. Was followed by Dr. Sanchez locally and then was followed up by Dr. Conti or [facility]. Not able to follow-up with any neurologist and is down for the last 2 years. Last 2 weeks has become very weak not even able to get out of bed. Being followed by neurology Dr. NIELSON: On immunoglobulins-day 3 -Acute UTI with cystitis IV ceftriaxone. Changed to Keflex tomorrow morning -Acute medical debility from above, patient is unable to even get out of bed on presentation PT OT -Primary osteoarthritis Tylenol as needed -Hypokalemia, replace -Full code -Public guardian Will change to Keflex tomorrow. Cut back IV fluids. Patient did well with physical therapy. Probably will discharge back to assisted living. Spoke to case packer Cecilio Past Medical History Past Medical History: Asthma, Respiratory Disorder, Syncope Additional Past Medical History / Comment(s): hx of falls, pt states last fall was in feb 2023. Hx MYASTHENIA GRAVIS, LUPAS,SARCOID OF LUNG,AUTOIMMUME OF THE SKIN,HASHIMOTOS, 2 collapse vertabrae, urinary leakage. History of Any Multi-Drug Resistant Organisms: None Reported Past Surgical History: Cholecystectomy, Tonsillectomy Additional Past Surgical History / Comment(s): THROIDECTOMY, esophagus narrowing/had procedure to stretch jan 2018 Past Anesthesia/Blood Transfusion Reactions: Motion Sickness Past Psychological History: Depression Smoking Status: Never smoker Past Alcohol Use History: None Reported Past Drug Use History: None Reported
--- NOTE | 2024-01-02 15:41 | P.PN ---
Subjective Progress Note Date: 01/02/24 I am following up with the patient and she denies any new neurological issues. She is tolerating IVIG well. She stated that she was having some questionable chest pain yesterday. Objective - Vital Signs Vital signs: Vital Signs Temp 97.9 F 01/02/24 13:08 Pulse 64 01/02/24 13:08 Resp 16 01/02/24 13:08 BP 145/65 01/02/24 13:08 Pulse Ox 96 01/02/24 13:08 FiO2 Intake & Output 01/01/24 01/02/24 01/02/24 18:59 06:59 18:59 Intake Total 127.3 590 Balance 127.3 590 Intake: Intake, IV Titration 127.3 Amount Immune Globulin ( 102.3 Gammagard) 20 gm In Empty Bag 1 bag @ Titrate IV . Q0M ONE Rx#:[id number] Immune Globulin ( 20 Gammagard) 20 gm In Empty Bag 1 bag @ Titrate IV . Q0M ONE Rx#:[id number] Immune Globulin ( 5 Gammagard) 5 gm In Empty Bag 1 bag @ Titrate IV . Q0M ONE Rx#:[id number] Oral 590 Other: Voiding Method Diaper Bedside Commode Bedside Commode Incontinent Diaper Diaper # Voids 2 2 - Exam GENERAL: The patient is sitting up in a chair and is not in acute distress. NEUROLOGICAL: Higher mental function: The patient is awake, alert, oriented to self, place and time. Patient is following commands. No aphasia and no neglect. Cranial nerves: The pupils are round, equal and reactive to light and accommodation. Visual chiang are full to confrontation throughout. Extraocular movement is intact no nystagmus is noted. Facial sensation is normal to touch throughout. The facial strength is normal throughout. Hearing is mildly decreased bilaterally to hand rub. Tongue is midline and moved [id number] without any difficulty. No dysarthria is noted. Shoulder shrug is normal bilaterally. Motor: The strength is uppers are 4+, hand mail handler assistant are 4+ to 4-. Lowers are limited because of pain but is at least 4-4+. Normal tone and bulk. Cerebellum: Normal finger to nose bilaterally. Sensation: Sensation is normal to touch throughout. Some of the workup during this hospital visit consisted of: Lactic acid is 2.2 Urinalysis seems suspicious for acute urinary tract infection Her acetylcholine receptor antibody 09/2023 is 0.32 which is considered equivocal rheumatoid factor is less than 15 - Labs CBC & Chem 7: 12/30/23 18:05 01/02/24 06:44 Labs: Abnormal Lab Results - Last 24 Hours (Table) 01/02/24 Range/Units 06:44 Chloride 108 H (98-107) mmol/L Assessment and Plan Assessment: This is a 78-year-old woman with history of myasthenia gravis who was managed by neuromuscular specialist over at [place] and had side effects to Mestinon and Prednison then she was managed at [facility] and was getting IVIG until 2020 since [facility] and has not followed-up with neurologist who is having generalized weakness for past 2-3 weeks with intermittent diplopia and SOB with exertion. In 09/20/2023 she had similar presentation but refused management and at that time she had UTI and felt improvement after UTI. Generalized weakness with intermittent diplopia and exertional shortness of breath seems due to worsening of her myasthenia gravis/MG exacerbation. So appears she has acute urinary tract infection which can worsen her symptoms as well Probable acute UTI History of UTI History of medication non-compliance Plan: Continue IVIG 2 g/kg over 5 days. Today is day #3/5. Her acetylcholine receptor antibody on 09/20/1999 24.32 that was ordered by Dr. Hein because of patient wishes for lab workup and is concerned equivocal. But in the past she was evaluated by neuromuscular specialist at [place] as well as she was managed by Dr. Conti at [facility] and was on IVIG 60g every 2 weeks and recommend to continue following-up with them. To follow-up with them within 1 to 2 weeks. If unable then recommend to follow-up with a local neurologist. She is on ceftriaxone for acute UTI that was started by the primary attending PT OT is consulted Patient complaining of questionable chest pain and will defer the management to the primary team Will defer the rest of the medical management to the primary team Discussed with patient and her primary attending and her nurse. Dr. Hein will resume neurology service tomorrow A.M.
[2024-01-02] MEDS: ACETAMINOPHEN TAB 325 MG TAB PO PRN (16:43)
[2024-01-02] MEDS: ONDANSETRON 4 MG/2 ML VIAL IVP PRN (17:21)
[2024-01-03] MEDS: CEPHALEXIN 500 MG CAP PO SCH (08:55)
[2024-01-03] MEDS: HYDROcodone/APAP 5-325MG 1 EACH TAB PO PRN (13:59)
[2024-01-03] MEDS: IMMUNE GLOBULIN (GAMMAGARD) 5 GM in EMPTY BAG 1 BAG IV ONE (14:04)
--- NOTE | 2024-01-03 14:41 | P.PN ---
Progress Note - Text Progress Note Date: 01/03/24 Chief Complaint: Weak and tired This is a pleasant 78-year-old patient, follows with Dr. Alexander Duarte. Patient does have a legal guardian. Chronic stable medical conditions include lupus, sarcoid of the lung, autoimmune disease of the skin, Tere's, chronic urine incontinence. Patient now presents for last 2 weeks feeling rather weak. To the point not even able to get out of bed. Appetite is gone down. Denies any fever and chills. Discomfort plaint of discomfort/burning in the urine. Sometime ago patient did follow-up with neurologist Dr. Sanchez. Patient was then sent to [facility] where she saw Dr. Conti and for her myasthenia gravis she was given IV immunoglobulins for about 2 years. Then COVID hit and she was not able to go to [place] anymore. Subsequently she tried to follow-up with different neurologist in town was unable to get an appointment. Not even with Dr. Sanchez. She mentions that once her house was found in disarray and that is when she got a legal guardian. December 31: Patient be given IV immunoglobulin per Dr. Nielson from neurology. Patient had questions today asked explained at length. Also discussed about possible rehab depending on how she does. Will receive 5 days total of globulins. PT OT on the case. Have the patient up in a chair.. January 01: Patient getting IV immunoglobulins. Has been complaining of some chest pain. EKG troponin ordered, both unremarkable spoke to the nurse to have the patient sit up in a chair. Chest pain likely from anxiety. Patient rather anxious. Discussed January 02: Patient again had refused immunoglobulin. After speaking to her she is agreed for the same. List of home medications were obtained from September. Those will be resumed. Spoke with Dr. Hein from neurology. To be reminded that patient was not taking her medications at home. Active Medications Acetaminophen (Acetaminophen Tab 325 Mg Tab) 650 mg PO Q6HR PRN PRN Reason: Mild Pain or Fever > 100.5 Last Admin: 01/03/24 04:42 Dose: 650 mg Hydrocodone Bitart/Acetaminophen (Hydrocodone/Apap 5-325mg 1 Each Tab) 0.5 each PO Q12HR PRN PRN Reason: Pain Alprazolam (Alprazolam 0.25 Mg Tab) 0.25 mg PO Q6HR PRN PRN Reason: Anxiety Apixaban (Apixaban 5 Mg Tab) 5 mg PO BID [facility]; Protocol Budesonide/Formoterol Fumarate (Symbicort 80-4.5 Mcg Inhaler) 2 puff INHALATION RT-BID [facility] Calcium Carbonate/Glycine (Calcium Carbonate 500 Mg Chewable) 1,000 mg PO Q4HR PRN PRN Reason: Dyspepsia Cephalexin (Cephalexin 500 Mg Cap) 500 mg PO TID [facility]; Protocol Last Admin: 01/03/24 08:55 Dose: Not Given Clopidogrel Bisulfate (Clopidogrel 75 Mg Tab) 75 mg PO DAILY [facility] Duloxetine HCl (Duloxetine Hcl 60 Mg Capsule.Dr) 60 mg PO DAILY [facility] Last Admin: 01/03/24 08:54 Dose: 60 mg Duloxetine HCl (Duloxetine Hcl 30 Mg Capsule.Dr) 30 mg PO HS [facility] Lactated Ringer's (Lactated Ringers) 1,000 mls @ 20 mls/hr IV .Q24H [facility] Last Admin: 01/03/24 06:33 Dose: 20 mls/hr Immune Globulin 20 gm/ IV (Solution) 200 mls @ 0 mls/hr IV .Q0M ONE; Protocol Stop: 01/04/24 12:01 Immune Globulin 5 gm/ IV (Solution) 50 mls @ 0 mls/hr IV .Q0M ONE; Protocol Stop: 01/04/24 12:01 Ipratropium [place] (Ipratropium 0.5 Mg/2.5 Ml Nebu) 0.5 mg INHALATION RT-QID [facility] Lactulose (Lactulose 20 Gm/30 Ml Cup) 20 gm PO DAILY PRN PRN Reason: Constipation Levothyroxine Sodium (Levothyroxine 112 Mcg Tab) 112 mcg PO DAILY@0630 [facility] Metoprolol Tartrate (Metoprolol Tartrate 12.5 Mg Tab) 12.5 mg PO TID [facility] Multivitamins/Minerals (Vit A,C & D-Fgknno-Rybugocw 1 Each Tab) 2 each PO DAILY [facility] Naloxone HCl (Naloxone 0.4 Mg/Ml 1 Ml Vial) 0.2 mg IV Q2M PRN PRN Reason: Opioid Reversal Ondansetron HCl (Ondansetron 4 Mg/2 Ml Vial) 4 mg IVP Q8HR PRN PRN Reason: Nausea And Vomiting Last Admin: 01/02/24 17:21 Dose: 4 mg Pantoprazole Sodium (Pantoprazole 40 Mg Tablet) 40 mg PO AC-BRKFST [facility] Last Admin: 01/03/24 08:54 Dose: 40 mg Temazepam (Temazepam 15 Mg Cap) 15 mg PO HS PRN PRN Reason: Insomnia Social history: Lives alone. Assisted living. Has a public l guardian. No smoking no alcohol Physical examination: VITAL SIGNS: 97.5, 73, 18, 144 x 78, 96% room air GENERAL: Resting in bed. EYES: Pupils equal. Conjunctiva brenna l. HEENT: External appearance of nose and ears normal, oral cavity grossly normal. NECK: JVD not raised; masses not palpable. HEART: First and second heart sounds are normal; no edema. LUNGS: Respiratory rate normal; clear to auscultation. ABDOMEN: Soft, nontender, liver spleen not palpable, no masses palpable. PSYCH: Alert and oriented x3; mood and affect anxious MUSCULOSKELETAL:No Clubbing/cyanosis;muscles-grossly intact. OA INVESTIGATIONS, reviewed in the clinical context: Troponin I x 2 negative Sodium 137 potassium 4.1 creatinine 0.77. White count 9.1 hemoglobin 11.9 platelets 357 EKG tracing personally reviewed by me-normal sinus rhythm. PVC. Assessment plan: -Acute myasthenia gravis exacerbation. Patient had previously been getting IV immunoglobulin every 2 weeks prior to COVID. Was followed by Dr. Sanchez locally and then was followed up by Dr. Conti or [facility]. Not able to follow-up with any neurologist and is down for the last 2 years. Last 2 weeks has become very weak not even able to get out of bed. Being followed by neurology Dr. NIELSON: On immunoglobulins-day 4 -Acute UTI with cystitis IV ceftriaxone. Changed over to Keflex today -Acute medical debility from above, patient is unable to even get out of bed on presentation PT OT -Paroxysmal atrial fibrillation for which patient has been Eliquis Less obtained today will be resumed -Primary osteoarthritis Tylenol as needed -Hypokalemia, replace -Full code -Public guardian Patient's care again discussed length with the patient. Has not agreed to take immunoglobulin. Home medication list reviewed will be reordered including Eliquis Past Medical History Past Medical History: Asthma, Respiratory Disorder, Syncope Additional Past Medical History / Comment(s): hx of falls, pt states last fall was in feb 2023. Hx MYASTHENIA GRAVIS, LUPAS,SARCOID OF LUNG,AUTOIMMUME OF THE SKIN,HASHIMOTOS, 2 collapse vertabrae, urinary leakage. History of Any Multi-Drug Resistant Organisms: None Reported Past Surgical History: Cholecystectomy, Tonsillectomy Additional Past Surgical History / Comment(s): THROIDECTOMY, esophagus narrowing/had procedure to stretch jan 2018 Past Anesthesia/Blood Transfusion Reactions: Motion Sickness Past Psychological History: Depression Smoking Status: Never smoker Past Alcohol Use History: None Reported Past Drug Use History: None Reported
[2024-01-03] MEDS: IPRATROPIUM 0.5 MG/2.5 ML NEBU INHALATION SCH (16:12)
[2024-01-03] MEDS: IMMUNE GLOBULIN (GAMMAGARD) 20 GM in EMPTY BAG 1 BAG IV ONE (16:24)
[2024-01-03] MEDS: METOPROLOL TARTRATE 12.5 MG TAB PO SCH (16:36)
[2024-01-03] MEDS: SYMBICORT 80-4.5 MCG INHALER INHALATION SCH (19:50)
[2024-01-03] MEDS: APIXABAN 5 MG TAB PO SCH (21:13)
[2024-01-03] MEDS: DULoxetine HCL 30 MG CAPSULE.DR PO SCH (21:13)
[2024-01-04] MEDS: HYDROcodone/APAP 5-325MG 1 EACH TAB PO PRN (01:35)
[2024-01-04] MEDS: LEVOTHYROXINE 112 MCG TAB PO SCH (06:11)
[2024-01-04] MEDS: CLOPIDOGREL 75 MG TAB PO SCH (08:37)
[2024-01-04] MEDS: VIT A,C & E-LUTEIN-MINERALS 1 EACH TAB PO SCH (08:37)
--- NOTE | 2024-01-04 11:08 | P.PN ---
Subjective Progress Note Date: 01/03/[address] initially [address] by Dr[address] Hong Nielson. Please refer to his note for details. Patient is a 78-year-old female with history of myasthenia gravis, not receiving IVIG since 2020. Patient was seen in our facility previously and refused treatment. She is on IVIG. Per nursing report, patient is refusing medications including Keflex, and also refusing IVIG today. I spoke with the patient, who states that she is sensitive to many medications. Patient states that she has been having headache with IVIG. Patient is also on Eliquis and Plavix at home, but currently not on. Per primary physician, patient is noncompliant with medication and even at home does not take it regularly. Some of the workup during this hospital visit consisted of: Lactic acid is 2.2 B12 618, folate 11.3. TSH was abnormal 6.45. Urinalysis seems suspicious for acute urinary tract infection Her acetylcholine receptor antibody 09/2023 is 0.32 which is considered equivocal rheumatoid factor is less than 15 Objective - Vital Signs Vital signs: Vital Signs Temp 98.1 F 01/03/24 08:00 Pulse 64 01/03/24 08:00 Resp 16 01/03/24 08:00 BP 142/78 01/03/24 08:00 Pulse Ox 92 L 01/03/24 08:00 FiO2 Intake & Output 01/02/24 01/03/24 01/03/24 18:59 06:59 18:59 Intake Total 890 Balance 890 Intake: Intake, IV Titration 350 Amount Immune Globulin ( 200 Gammagard) 20 gm In Empty Bag 1 bag @ Titrate IV . Q0M ONE Rx#:[id number] Immune Globulin ( 50 Gammagard) 5 gm In Empty Bag 1 bag @ Titrate IV . Q0M ONE Rx#:[id number] cefTRIAXone 1 gm In 100 Sodium Chloride 0.9% 50 ml @ 100 mls/hr IVPB Q24HR [facility] Rx#:[id number] Oral 540 Other: Voiding Method Bedside Commode Bedside Commode Bedside Commode Diaper Diaper Incontinent # Voids 2 2 1 - Exam Patient is alert and awake in no distress. Speech and language functions are normal. No aphasia. Cranial nerves reveal visual chiang are full. Extraocular muscles are intact. No nystagmus. Face is symmetric. Tongue protrudes to the midline. Shoulder shrug normal. Sensory to touch is equal. No ataxia. - Labs CBC & Chem 7: 12/30/23 18:05 01/02/24 06:44 Assessment and Plan Assessment: This is a 78-year-old woman with history of myasthenia gravis who was managed by neuromuscular specialist over at [place] and had side effects to Mestinon and Prednisone then she was managed at [facility] and was getting IVIG until 2020 since [facility] and has not followed-up with neurologist who is having generalized weakness for past 2-3 weeks with intermittent diplopia and SOB with exertion. In 09/20/2023 she had similar presentation but refused management and at that time she had UTI and felt improvement after UTI. Generalized weakness with intermittent diplopia and exertional shortness of breath seems due to worsening of her myasthenia gravis/MG exacerbation. So appears she has acute urinary tract infection which can worsen her symptoms as well Probable acute UTI History of UTI History of medication non-compliance Plan: Patient is currently receiving IVIG. Today is day #4/5. Resume home medications including Eliquis, and Plavix. Discussed with primary physician. Patient follows up with Dr. Conti at [facility]. Continues to be on IVIG 60 g every 2 weeks in the past. PT OT.
[2024-01-04] MEDS: IMMUNE GLOBULIN (GAMMAGARD) 5 GM in EMPTY BAG 1 BAG IV ONE (12:11)
[2024-01-04] MEDS: IMMUNE GLOBULIN (GAMMAGARD) 20 GM in EMPTY BAG 1 BAG IV ONE (12:37)
--- NOTE | 2024-01-04 15:22 | P.PN ---
Progress Note - Text Progress Note Date: 01/04/24 Chief Complaint: Weak and tired This is a pleasant 78-year-old patient, follows with Dr. Alexander Duarte. Patient does have a legal guardian. Chronic stable medical conditions include lupus, sarcoid of the lung, autoimmune disease of the skin, Tere's, chronic urine incontinence. Patient now presents for last 2 weeks feeling rather weak. To the point not even able to get out of bed. Appetite is gone down. Denies any fever and chills. Discomfort plaint of discomfort/burning in the urine. Sometime ago patient did follow-up with neurologist Dr. Sanchez. Patient was then sent to [facility] where she saw Dr. Conti and for her myasthenia gravis she was given IV immunoglobulins for about 2 years. Then COVID hit and she was not able to go to [place] anymore. Subsequently she tried to follow-up with different neurologist in town was unable to get an appointment. Not even with Dr. Sanchez. She mentions that once her house was found in disarray and that is when she got a legal guardian. December 31: Patient be given IV immunoglobulin per Dr. Nielson from neurology. Patient had questions today asked explained at length. Also discussed about possible rehab depending on how she does. Will receive 5 days total of globulins. PT OT on the case. Have the patient up in a chair.. January 01: Patient getting IV immunoglobulins. Has been complaining of some chest pain. EKG troponin ordered, both unremarkable spoke to the nurse to have the patient sit up in a chair. Chest pain likely from anxiety. Patient rather anxious. Discussed January 02: Patient again had refused immunoglobulin. After speaking to her she is agreed for the same. List of home medications were obtained from September. Those will be resumed. Spoke with Dr. Hein from neurology. To be reminded that patient was not taking her medications at home. January 03: Patient having some headache a bit tired. Diet discussed. Dr. Hein holding of the hemoglobin for now. Patient also refusing her Keflex. Refused it yesterday. No urinary symptoms. Will DC the same. Ensure added Active Medications Acetaminophen (Acetaminophen Tab 325 Mg Tab) 650 mg PO Q6HR PRN PRN Reason: Mild Pain or Fever > 100.5 Last Admin: 01/03/24 04:42 Dose: 650 mg Acetaminophen/Butalbital/Caffeine (Butalb/Apap/Caff 50-325-40mg Tab) 1 each PO Q4HR PRN PRN Reason: Headache Hydrocodone Bitart/Acetaminophen (Hydrocodone/Apap 5-325mg 1 Each Tab) 0.5 each PO Q12HR PRN PRN Reason: Pain Last Admin: 01/04/24 01:35 Dose: 0.5 each Alprazolam (Alprazolam 0.25 Mg Tab) 0.25 mg PO Q6HR PRN PRN Reason: Anxiety Apixaban (Apixaban 5 Mg Tab) 5 mg PO BID [facility]; Protocol Last Admin: 01/04/24 08:37 Dose: 5 mg Budesonide/Formoterol Fumarate (Symbicort 80-4.5 Mcg Inhaler) 2 puff INHALATION RT-BID [facility] Last Admin: 01/04/24 07:48 Dose: 2 puff Calcium Carbonate/Glycine (Calcium Carbonate 500 Mg Chewable) 1,000 mg PO Q4HR PRN PRN Reason: Dyspepsia Cephalexin (Cephalexin 500 Mg Cap) 500 mg PO TID [facility]; Protocol Last Admin: 01/04/24 13:53 Dose: Not Given Clopidogrel Bisulfate (Clopidogrel 75 Mg Tab) 75 mg PO DAILY [facility] Last Admin: 01/04/24 08:37 Dose: 75 mg Duloxetine HCl (Duloxetine Hcl 60 Mg Capsule.) 60 mg PO DAILY [facility] Last Admin: 01/04/24 08:37 Dose: 60 mg Duloxetine HCl (Duloxetine Hcl 30 Mg Capsule.) 30 mg PO HS [facility] Last Admin: 01/03/24 21:13 Dose: 30 mg Lactated Ringer's (Lactated Ringers) 1,000 mls @ 20 mls/hr IV .Q24H [facility] Last Admin: 01/04/24 12:00 Dose: Not Given Ipratropium [place] (Ipratropium 0.5 Mg/2.5 Ml Nebu) 0.5 mg INHALATION RT-QID [facility] Last Admin: 01/04/24 11:55 Dose: Not Given Lactulose (Lactulose 20 Gm/30 Ml Cup) 20 gm PO DAILY PRN PRN Reason: Constipation Levothyroxine Sodium (Levothyroxine 112 Mcg Tab) 112 mcg PO DAILY@0630 [facility] Last Admin: 01/04/24 06:11 Dose: 112 mcg Metoprolol Tartrate (Metoprolol Tartrate 12.5 Mg Tab) 12.5 mg PO TID [facility] Last Admin: 01/04/24 08:37 Dose: 12.5 mg Multivitamins/Minerals (Vit A,C & I-Mgmmiy-Yavprvkf 1 Each Tab) 2 each PO DAILY [facility] Last Admin: 01/04/24 08:37 Dose: 2 each Naloxone HCl (Naloxone 0.4 Mg/Ml 1 Ml Vial) 0.2 mg IV Q2M PRN PRN Reason: Opioid Reversal Ondansetron HCl (Ondansetron 4 Mg/2 Ml Vial) 4 mg IVP Q8HR PRN PRN Reason: Nausea And Vomiting Last Admin: 01/02/24 17:21 Dose: 4 mg Pantoprazole Sodium (Pantoprazole 40 Mg Tablet) 40 mg PO AC-BRKFST [facility] Last Admin: 01/04/24 08:37 Dose: 40 mg Temazepam (Temazepam 15 Mg Cap) 15 mg PO HS PRN PRN Reason: Insomnia Social history: Lives alone. Assisted living. Has a public l guardian. No smoking no alcohol Physical examination: VITAL SIGNS: 98.2, 60, 16, 163/78, 92% room air GENERAL: Resting in bed. EYES: Pupils equal. Conjunctiva brenna l. HEENT: External appearance of nose and ears normal, oral cavity grossly normal. NECK: JVD not raised; masses not palpable. HEART: First and second heart sounds are normal; no edema. LUNGS: Respiratory rate normal; clear to auscultation. ABDOMEN: Soft, nontender, liver spleen not palpable, no masses palpable. PSYCH: Alert and oriented x3; mood and affect anxious MUSCULOSKELETAL:No Clubbing/cyanosis;muscles-grossly intact. OA INVESTIGATIONS, reviewed in the clinical context: Troponin I x 2 negative Sodium 137 potassium 4.1 creatinine 0.77. White count 9.1 hemoglobin 11.9 platelets 357 EKG tracing personally reviewed by me-normal sinus rhythm. PVC. Assessment plan: -Acute myasthenia gravis exacerbation. Patient had previously been getting IV immunoglobulin every 2 weeks prior to COVID. Was followed by Dr. Sanchez locally and then was followed up by Dr. Conti or [facility]. Not able to follow-up with any neurologist and is down for the last 2 years. Last 2 weeks has become very weak not even able to get out of bed. Being followed by neurology : On immunoglobulins-day 4. Immunoglobulin held today. -Acute UTI with cystitis IV ceftriaxone. Patient refused Keflex -Acute medical debility from above, patient is unable to even get out of bed on presentation: Better PT OT -Paroxysmal atrial fibrillation for which patient has been Eliquis -Primary osteoarthritis Tylenol as needed -Hypokalemia, corrected -Full code -Public guardian Neurology is holding of patient's pelvic immunoglobulin. Told patient sit up in a chair. Encourage oral intake. Ordered Ensure. Will check manual blood pressure in both arms. Past Medical History Past Medical History: Asthma, Respiratory Disorder, Syncope Additional Past Medical History / Comment(s): hx of falls, pt states last fall was in feb 2023. Hx MYASTHENIA GRAVIS, LUPAS,SARCOID OF LUNG,AUTOIMMUME OF THE SKIN,HASHIMOTOS, 2 collapse vertabrae, urinary leakage. History of Any Multi-Drug Resistant Organisms: None Reported Past Surgical History: Cholecystectomy, Tonsillectomy Additional Past Surgical History / Comment(s): THROIDECTOMY, esophagus narrowing/had procedure to stretch jan 2018 Past Anesthesia/Blood Transfusion Reactions: Motion Sickness Past Psychological History: Depression Smoking Status: Never smoker Past Alcohol Use History: None Reported Past Drug Use History: None Reported
[2024-01-04] MEDS: BUTALB/APAP/CAFF 50-325-40MG TAB PO PRN (15:28)
--- NOTE | 2024-01-05 11:59 | P.PN ---
Subjective Progress Note Date: 01/04/24 01/04/2024: Patient was seen for a follow-up. Patient complaining of headache all night long, which appears more like a migratory headache from 1 point to another. She also having nausea all night long. Her ears hurt off and on. Patient denies any rash. No other concerns. Patient is back on her medications. Patient also concerned about blood pressure running high 161/75. She usually tends to run very low blood pressures between 100-110 systolics. This is very high for her. Patient had an EKG done as well as troponins, which were normal. 01/03/2024: Patient initially seen by Dr. Hong Nielson. Please refer to his note for details. Patient is a 78-year-old female with history of myasthenia gravis, not receiving IVIG since 2020. Patient was seen in our facility previously and refused treatment. She is on IVIG. Per nursing report, patient is refusing medications including Keflex, and also refusing IVIG today. I spoke with the patient, who states that she is sensitive to many medications. Patient states that she has been having headache with IVIG. Patient is also on Eliquis and Plavix at home, but currently not on. Per primary physician, patient is noncompliant with medication and even at home does not take it regularly. Some of the workup during this hospital visit consisted of: Lactic acid is 2.2 B12 618, folate 11.3. TSH was abnormal 6.45. Urinalysis seems suspicious for acute urinary tract infection Her acetylcholine receptor antibody 09/2023 is 0.32 which is considered equivocal rheumatoid factor is less than 15 Objective - Vital Signs Vital signs: Vital Signs Temp 98.3 F 01/05/24 07:40 Pulse 53 L 01/05/24 07:40 Resp 16 01/05/24 07:40 BP 139/73 01/05/24 07:40 Pulse Ox 93 L 01/05/24 07:40 FiO2 Intake & Output 01/04/24 01/05/24 01/05/24 18:59 06:59 18:59 Intake Total 540 Balance 540 Intake: Oral 540 Other: Voiding Method Bedside Commode Bedside Commode Bedside Commode Diaper Diaper # Voids 3 4 - Exam Patient is alert and awake in no distress. Speech and language functions are normal. No aphasia. Cranial nerves reveal visual chiang are full. Extraocular muscles are intact. No nystagmus. Face is symmetric. Tongue protrudes to the midline. Shoulder shrug normal. Sensory to touch is equal. No ataxia. - Labs CBC & Chem 7: 12/30/23 18:05 01/02/24 06:44 Assessment and Plan Assessment: This is a 78-year-old woman with history of myasthenia gravis who was managed by neuromuscular specialist over at [place] and had side effects to Mestinon and Prednisone then she was managed at [facility] and was getting IVIG until 2020 since [facility] and has not followed-up with neurologist who is having generalized weakness for past 2-3 weeks with intermittent diplopia and SOB with exertion. In 09/20/2023 she had similar presentation but refused management and at that time she had UTI and felt improvement after UTI. Generalized weakness with intermittent diplopia and exertional shortness of breath seems due to worsening of her myasthenia gravis/MG exacerbation. So appears she has acute urinary tract infection which can worsen her symptoms as well Probable acute UTI History of UTI History of medication non-compliance Plan: Patient received 4/5 doses of IVIG. Today is a last dose, but patient is having headache, her blood pressure is up around 161 systolic, which is very high for her. She usually runs between 100-110 range. We will hold IVIG today. If her blood pressure gets controlled, and headache gets better, we will resume IVIG tomorrow. We will give Fioricet as needed for headache. Blood pressure controlled as per IM. Discussed with primary physician. Continue home medications including Eliquis, and Plavix. Patient follows up with Dr. Conti at [facility]. Continues to be on IVIG 60 g every 2 weeks in the past. PT OT.
[2024-01-05] MEDS: IMMUNE GLOBULIN (GAMMAGARD) 5 GM in EMPTY BAG 1 BAG IV ONE (12:40)
[2024-01-05] MEDS: IMMUNE GLOBULIN (GAMMAGARD) 20 GM in EMPTY BAG 1 BAG IV ONE (13:39)
--- NOTE | 2024-01-05 15:28 | P.PN ---
Progress Note - Text Progress Note Date: 01/05/24 Chief Complaint: Weak and tired This is a pleasant 78-year-old patient, follows with Dr. Alexander Duarte. Patient does have a legal guardian. Chronic stable medical conditions include lupus, sarcoid of the lung, autoimmune disease of the skin, Tere's, chronic urine incontinence. Patient now presents for last 2 weeks feeling rather weak. To the point not even able to get out of bed. Appetite is gone down. Denies any fever and chills. Discomfort plaint of discomfort/burning in the urine. Sometime ago patient did follow-up with neurologist Dr. Sanchez. Patient was then sent to [facility] where she saw Dr. Conti and for her myasthenia gravis she was given IV immunoglobulins for about 2 years. Then COVID hit and she was not able to go to [place] anymore. Subsequently she tried to follow-up with different neurologist in town was unable to get an appointment. Not even with Dr. Sanchez. She mentions that once her house was found in disarray and that is when she got a legal guardian. December 31: Patient be given IV immunoglobulin per Dr. Nielson from neurology. Patient had questions today asked explained at length. Also discussed about possible rehab depending on how she does. Will receive 5 days total of globulins. PT OT on the case. Have the patient up in a chair.. January 01: Patient getting IV immunoglobulins. Has been complaining of some chest pain. EKG troponin ordered, both unremarkable spoke to the nurse to have the patient sit up in a chair. Chest pain likely from anxiety. Patient rather anxious. Discussed January 02: Patient again had refused immunoglobulin. After speaking to her she is agreed for the same. List of home medications were obtained from September. Those will be resumed. Spoke with Dr. Hein from neurology. To be reminded that patient was not taking her medications at home. January 03: Patient having some headache a bit tired. Diet discussed. Dr. Hein holding of the hemoglobin for now. Patient also refusing her Keflex. Refused it yesterday. No urinary symptoms. Will DC the same. Ensure added January 04: No headaches. Blood pressure is good. Patient is getting his fifth dose of immunoglobulin today. Eating better. Active Medications Acetaminophen (Acetaminophen Tab 325 Mg Tab) 650 mg PO Q6HR PRN PRN Reason: Mild Pain or Fever > 100.5 Last Admin: 01/03/24 04:42 Dose: 650 mg Acetaminophen/Butalbital/Caffeine (Butalb/Apap/Caff 50-325-40mg Tab) 1 each PO Q4HR PRN PRN Reason: Headache Last Admin: 01/04/24 15:28 Dose: 1 each Hydrocodone Bitart/Acetaminophen (Hydrocodone/Apap 5-325mg 1 Each Tab) 0.5 each PO Q12HR PRN PRN Reason: Pain Last Admin: 01/05/24 02:27 Dose: 0.5 each Alprazolam (Alprazolam 0.25 Mg Tab) 0.25 mg PO Q6HR PRN PRN Reason: Anxiety Apixaban (Apixaban 5 Mg Tab) 5 mg PO BID [facility]; Protocol Last Admin: 01/05/24 08:39 Dose: 5 mg Budesonide/Formoterol Fumarate (Symbicort 80-4.5 Mcg Inhaler) 2 puff INHALATION RT-BID [facility] Last Admin: 01/05/24 08:28 Dose: Not Given Calcium Carbonate/Glycine (Calcium Carbonate 500 Mg Chewable) 1,000 mg PO Q4HR PRN PRN Reason: Dyspepsia Clopidogrel Bisulfate (Clopidogrel 75 Mg Tab) 75 mg PO DAILY [facility] Last Admin: 01/05/24 08:39 Dose: 75 mg Duloxetine HCl (Duloxetine Hcl 60 Mg Capsule.Dr) 60 mg PO DAILY [facility] Last Admin: 01/05/24 08:39 Dose: 60 mg Duloxetine HCl (Duloxetine Hcl 30 Mg Capsule.) 30 mg PO HS [facility] Last Admin: 01/04/24 20:29 Dose: 30 mg Lactated Ringer's (Lactated Ringers) 1,000 mls @ 20 mls/hr IV .Q24H [facility] Last Admin: 01/05/24 12:06 Dose: Not Given Ipratropium [place] (Ipratropium 0.5 Mg/2.5 Ml Nebu) 0.5 mg INHALATION RT-QID [facility] Last Admin: 01/05/24 11:48 Dose: Not Given Lactulose (Lactulose 20 Gm/30 Ml Cup) 20 gm PO DAILY PRN PRN Reason: Constipation Levothyroxine Sodium (Levothyroxine 112 Mcg Tab) 112 mcg PO DAILY@0630 [facility] Last Admin: 01/05/24 05:45 Dose: 112 mcg Metoprolol Tartrate (Metoprolol Tartrate 12.5 Mg Tab) 12.5 mg PO TID [facility] Last Admin: 01/05/24 08:38 Dose: 12.5 mg Multivitamins/Minerals (Vit A,C & M-Wkisgk-Mgbizvef 1 Each Tab) 2 each PO DAILY [facility] Last Admin: 01/05/24 08:39 Dose: 2 each Naloxone HCl (Naloxone 0.4 Mg/Ml 1 Ml Vial) 0.2 mg IV Q2M PRN PRN Reason: Opioid Reversal Ondansetron HCl (Ondansetron 4 Mg/2 Ml Vial) 4 mg IVP Q8HR PRN PRN Reason: Nausea And Vomiting Last Admin: 01/02/24 17:21 Dose: 4 mg Pantoprazole Sodium (Pantoprazole 40 Mg Tablet) 40 mg PO AC-BRKFST [facility] Last Admin: 01/05/24 08:39 Dose: 40 mg Temazepam (Temazepam 15 Mg Cap) 15 mg PO HS PRN PRN Reason: Insomnia Social history: Lives alone. Assisted living. Has a public l guardian. No smoking no alcohol Physical examination: VITAL SIGNS: 97.5, 54, 16, 139 x 73, 96% room air GENERAL: Resting in bed. Comfortable EYES: Pupils equal. Conjunctiva brenna l. HEENT: External appearance of nose and ears normal, oral cavity grossly normal. NECK: JVD not raised; masses not palpable. HEART: First and second heart sounds are normal; no edema. LUNGS: Respiratory rate normal; clear to auscultation. ABDOMEN: Soft, nontender, liver spleen not palpable, no masses palpable. PSYCH: Alert and oriented x3; mood and affect anxious MUSCULOSKELETAL:No Clubbing/cyanosis;muscles-grossly intact. OA INVESTIGATIONS, reviewed in the clinical context: Troponin I x 2 negative Sodium 137 potassium 4.1 creatinine 0.77. White count 9.1 hemoglobin 11.9 platelets 357 EKG tracing personally reviewed by me-normal sinus rhythm. PVC. Assessment plan: -Acute myasthenia gravis exacerbation. Patient had previously been getting IV immunoglobulin every 2 weeks prior to COVID. Was followed by Dr. Sanchez locally and then was followed up by Dr. Conti or [facility]. Not able to follow-up with any neurologist and is down for the last 2 years. Last 2 weeks has become very weak not even able to get out of bed. Being followed by neurology : On immunoglobulins-fifth dose today. -Acute UTI with cystitis: Improved IV ceftriaxone. Patient refused Keflex -Acute medical debility from above, patient is unable to even get out of bed on presentation: Better PT OT -Paroxysmal atrial fibrillation for which patient has been Eliquis -Primary osteoarthritis Tylenol as needed -Hypokalemia, corrected -Full code -Public guardian Patient getting his fifth dose of immunoglobulin today. Should be able to be discharged tomorrow. Labs in the a.m. speak to public guardian's office tomorrow which has been closed for the weekend and the holiday. Past Medical History Past Medical History: Asthma, Respiratory Disorder, Syncope Additional Past Medical History / Comment(s): hx of falls, pt states last fall was in feb 2023. Hx MYASTHENIA GRAVIS, LUPAS,SARCOID OF LUNG,AUTOIMMUME OF THE SKIN,HASHIMOTOS, 2 collapse vertabrae, urinary leakage. History of Any Multi-Drug Resistant Organisms: None Reported Past Surgical History: Cholecystectomy, Tonsillectomy Additional Past Surgical History / Comment(s): THROIDECTOMY, esophagus narrowing/had procedure to stretch jan 2018 Past Anesthesia/Blood Transfusion Reactions: Motion Sickness Past Psychological History: Depression Smoking Status: Never smoker Past Alcohol Use History: None Reported Past Drug Use History: None Reported
[2024-01-06 06:46] LABS: African American GFR (CKD) 88 (>60 ml/min/1.73 sqM); Anion Gap 7 mmol/L; Blood Urea Nitrogen 14 mg/dL (7-17); Calcium 8.9 mg/dL (8.4-10.2); Carbon Dioxide 24 mmol/L (22-30); Chloride 103 mmol/L (98-107); Glucose 87 mg/dL (74-99); Non-African American GFR(CKD) 76 (>60 ml/min/1.73 sqM); Potassium 4.5 mmol/L (3.5-5.1); Sodium 134 mmol/L (137-145)
[2024-01-06 06:49] LABS: Basophils % (A) 0 %; Eosinophils % (A) 1 %; HCT 35.4 % (34.0-46.0); HGB 11.3 gm/dL (11.4-16.0); Hypochromasia Slight; Lymphocytes # (A) 0.5 k/uL (1.0-4.8); Lymphocytes % (A) 12 %; MCH 28.1 pg (25.0-35.0); MCHC 31.9 g/dL (31.0-37.0); MCV 88.2 fL (80.0-100.0); Mean Platelet Volume 8.5; Monocytes # (A) 0.2 k/uL (0-1.0); Monocytes % (A) 5 %; Neutrophils # (A) 3.7 k/uL (1.3-7.7); Neutrophils % (A) 81 %; Platelet Count 460 k/uL (150-450); RBC 4.01 m/uL (3.80-5.40); RDW 14.1 % (11.5-15.5); WBC 4.6 k/uL (3.8-10.6)
[2024-01-06 07:55] VITALS: RESP 15
--- NOTE | 2024-01-06 11:06 | P.PN ---
Subjective Progress Note Date: 01/05/24 01/05/2024: Patient was seen for a follow-up. Patient complaining of pain in the head off and on. She is still concerned that her blood pressure is high, running around 154 systolic. She usually runs blood pressure around 100/60. Patient again asking about client experience specialist about need for battery replacement in the loop recorder. Recommended to follow-up with primary physician/cardiology. 01/04/2024: Patient was seen for a follow-up. Patient complaining of headache all night long, which appears more like a migratory headache from 1 point to another. She also having nausea all night long. Her ears hurt off and on. Patient denies any rash. No other concerns. Patient is back on her medications. Patient also concerned about blood pressure running high 161/75. She usually tends to run very low blood pressures between 100-110 systolics. This is very high for her. Patient had an EKG done as well as troponins, which were normal. 01/03/2024: Patient initially seen by Dr. Hong Nielson. Please refer to his note for details. Patient is a 78-year-old female with history of myasthenia gravis, not receiving IVIG since 2020. Patient was seen in our facility previously and refused treatment. She is on IVIG. Per nursing report, patient is refusing medications including Keflex, and also refusing IVIG today. I spoke with the patient, who states that she is sensitive to many medications. Patient states that she has been having headache with IVIG. Patient is also on Eliquis and Plavix at home, but currently not on. Per primary physician, patient is noncompliant with medication and even at home does not take it regularly. Some of the workup during this hospital visit consisted of: Lactic acid is 2.2 B12 618, folate 11.3. TSH was abnormal 6.45. Urinalysis seems suspicious for acute urinary tract infection Her acetylcholine receptor antibody 09/2023 is 0.32 which is considered equivocal rheumatoid factor is less than 15 Objective - Vital Signs Vital signs: Vital Signs Temp 97.5 F L 01/05/24 14:00 Pulse 54 L 01/05/24 14:00 Resp 16 01/05/24 14:00 BP 160/79 01/05/24 14:00 Pulse Ox 96 01/05/24 14:00 FiO2 Intake & Output 01/04/24 01/05/24 01/05/24 18:59 06:59 18:59 Intake Total 540 540 Balance 540 540 Intake: Oral 540 540 Other: Voiding Method Bedside Commode Bedside Commode Bedside Commode Diaper Diaper # Voids 3 4 3 - Exam Patient is alert and awake in no distress. Speech and language functions are normal. No aphasia. Cranial nerves reveal visual chiang are full. Extraocular muscles are intact. No nystagmus. Face is symmetric. Tongue protrudes to the midline. Patient's fascial closure is normal. Lip closure is normal. Shoulder shrug normal. Sensory to touch is equal. No ataxia. Muscle strength is normal in the biceps, triceps and jeeper operator and deltoid for her age. - Labs CBC & Chem 7: 01/06/24 05:37 01/06/24 05:37 Assessment and Plan Assessment: This is a 78-year-old woman with history of myasthenia gravis who was managed by neuromuscular specialist over at [place] and had side effects to Mestinon and Prednisone then she was managed at [facility] and was getting IVIG until 2020 since [facility] and has not followed-up with neurologist who is having generalized weakness for past 2-3 weeks with intermittent diplopia and SOB with exertion. In 09/20/2023 she had similar presentation but refused management and at that time she had UTI and felt improvement after UTI. Generalized weakness with intermittent diplopia and exertional shortness of breath seems due to worsening of her myasthenia gravis/MG exacerbation. So appears she has acute urinary tract infection which can worsen her symptoms as well Probable acute UTI History of UTI History of medication non-compliance Plan: Patient received 5/5 doses of IVIG. Today she has received last dose. Patient has requested to receive the last dose of IVIG today, although she did decline it yesterday. We will give Fioricet as needed for headache. Blood pressure control as per IM. Discussed with primary physician. Continue home medications including Eliquis, and Plavix. Patient follows up with Dr. Conti at [facility]. Continues to be on IVIG 60 g every 2 weeks in the past. PT OT. Neurologically clear for discharge in the morning.
[2024-01-06 12:19] VITALS: BMI 35.9
[2024-01-06 12:41] VITALS: BP 137/84; PULSE 61; TEMP 98.1
--- NOTE | 2024-01-06 15:39 | P.DS ---
Providers Date of admission: 12/30/23 19:51 Expected date of discharge: 01/06/24 Attending physician: Sonu Viera Consults: 12/30/23 19:52 Consult Physician Routine Consulting Provider: Hong Nielson Consult Reason/Comments: myasthenia gravis Do you want consulting provider notified?: Yes Primary care physician: [facility] Course: Chief Complaint: Weak and tired This is a pleasant 78-year-old patient, follows with Dr. Alexander Duarte. Patient does have a legal guardian. Chronic stable medical conditions include lupus, sarcoid of the lung, autoimmune disease of the skin, Tere's, chronic urine incontinence. Patient now presents for last 2 weeks feeling rather weak. To the point not even able to get out of bed. Appetite is gone down. Denies any fever and chills. Discomfort plaint of discomfort/burning in the urine. Sometime ago patient did follow-up with neurologist Dr. Sanchez. Patient was then sent to [facility] where she saw Dr. Conti and for her myasthenia gravis she was given IV immunoglobulins for about 2 years. Then COVID hit and she was not able to go to [place] anymore. Subsequently she tried to follow-up with different neurologist in town was unable to get an appointment. Not even with Dr. Sanchez. She mentions that once her house was found in disarray and that is when she got a legal guardian. December 31: Patient be given IV immunoglobulin per Dr. Nielson from neurology. Patient had questions today asked explained at length. Also discussed about possible rehab depending on how she does. Will receive 5 days total of globulins. PT OT on the case. Have the patient up in a chair.. January 01: Patient getting IV immunoglobulins. Has been complaining of some chest pain. EKG troponin ordered, both unremarkable spoke to the nurse to have the patient sit up in a chair. Chest pain likely from anxiety. Patient rather anxious. Discussed January 02: Patient again had refused immunoglobulin. After speaking to her she is agreed for the same. List of home medications were obtained from September. Those will be resumed. Spoke with Dr. Hein from neurology. To be reminded that patient was not taking her medications at home. January 03: Patient having some headache a bit tired. Diet discussed. Dr. Hasan holding of the hemoglobin for now. Patient also refusing her Keflex. Refused it yesterday. No urinary symptoms. Will DC the same. Ensure added January 04: No headaches. Blood pressure is good. Patient is getting his fifth dose of immunoglobulin today. Eating better. January 05: Patient seen by PT OT. Walking well. Will go back to assisted living. Spoke to patient's legal guardian Alfreda. At the assisted living there is a person who actually monitors her medications. She will be discharged on home medications. She will also establish with Dr. Oli Garrett neurologist who she has seen before. Discussed with the social media campaign manager and the nurse. Discussion and discharge planning more than 35 minutes The Social history: Lives alone. Assisted living. Has a public l guardian. No smoking no alcohol Physical examination: VITAL SIGNS: 98.1, 61, 15, 137 x 84, 96% room air GENERAL: Resting in bed. Comfortable EYES: Pupils equal. Conjunctiva brenna l. HEENT: External appearance of nose and ears normal, oral cavity grossly normal. NECK: JVD not raised; masses not palpable. HEART: First and second heart sounds are normal; no edema. LUNGS: Respiratory rate normal; clear to auscultation. ABDOMEN: Soft, nontender, liver spleen not palpable, no masses palpable. PSYCH: Alert and oriented x3; mood and affect anxious MUSCULOSKELETAL:No Clubbing/cyanosis;muscles-grossly intact. OA INVESTIGATIONS, reviewed in the clinical context: January 05: White count 4.6 hemoglobin 11.3 platelets 460 potassium 4.5 creatinine 0.75 Troponin I x 2 negative Sodium 137 potassium 4.1 creatinine 0.77. White count 9.1 hemoglobin 11.9 platelets 357 EKG tracing personally reviewed by me-normal sinus rhythm. PVC. Assessment plan: -Acute myasthenia gravis exacerbation. Patient had previously been getting IV immunoglobulin every 2 weeks prior to COVID. Was followed by Dr. Sanchez locally and then was followed up by Dr. Conti or [facility]. Not able to follow-up with any neurologist and is down for the last 2 years. Last 2 weeks has become very weak not even able to get out of bed. Received 5 days of immunoglobulin. Follow-up with Dr. Landrum as outpatient -Acute UTI with cystitis: Improved IV ceftriaxone. Patient refused Keflex -Acute medical debility from above, patient is unable to even get out of bed on presentation: Better PT OT. Patient return to assisted living -Paroxysmal atrial fibrillation Continue Eliquis -Primary osteoarthritis Tylenol as needed -Hypokalemia, corrected -Full code -Public guardianAlfreda Disposition: Assisted living Past Medical History Past Medical History: Asthma, Respiratory Disorder, Syncope Additional Past Medical History / Comment(s): hx of falls, pt states last fall was in feb 2023. Hx MYASTHENIA GRAVIS, LUPAS,SARCOID OF LUNG,AUTOIMMUME OF THE SKIN,HASHIMOTOS, 2 collapse vertabrae, urinary leakage. History of Any Multi-Drug Resistant Organisms: None Reported Past Surgical History: Cholecystectomy, Tonsillectomy Additional Past Surgical History / Comment(s): THROIDECTOMY, esophagus narrowing/had procedure to stretch jan 2018 Past Anesthesia/Blood Transfusion Reactions: Motion Sickness Past Psychological History: Depression Smoking Status: Never smoker Past Alcohol Use History: None Reported Past Drug Use History: None Reported Plan - Discharge Summary Discharge Rx Participant: No New Discharge Prescriptions: Continue DULoxetine HCL [Cymbalta] 30 mg PO HS Apixaban [Eliquis] 5 mg PO BID Butalb/Acetaminophen/Caffeine [Fioricet 50-325-40] 1 each PO Q4HR PRN PRN Reason: Headache HYDROcodone/APAP 5-325MG [Wheeler 5-325] 1 tab PO HS PRN PRN Reason: Pain Levothyroxine Sodium 112 mcg PO DAILY Pantoprazole [Protonix] 40 mg PO DAILY Fluticasone/Umeclidin/Vilanter [Trelegy Ellipta 200-62.5-25] 1 puff INHALATION DAILY Clopidogrel [Plavix] 75 mg PO DAILY DULoxetine HCL [Cymbalta] 60 mg PO DAILY@0900 Metoprolol Tartrate 25 mg PO TID Discharge Medication List Apixaban [Eliquis] 5 mg PO BID 01/06/24 [History] Butalb/Acetaminophen/Caffeine [Fioricet 50-325-40] 1 each PO Q4HR PRN 01/06/24 [History] Clopidogrel [Plavix] 75 mg PO DAILY 01/06/24 [History] DULoxetine HCL [Cymbalta] 30 mg PO HS 01/06/24 [History] DULoxetine HCL [Cymbalta] 60 mg PO DAILY@0900 01/06/24 [History] Fluticasone/Umeclidin/Vilanter [Trelegy Ellipta 200-62.5-25] 1 puff INHALATION DAILY 01/06/24 [History] HYDROcodone/APAP 5-325MG [Wheeler 5-325] 1 tab PO HS PRN 01/06/24 [History] Levothyroxine Sodium 112 mcg PO DAILY 01/06/24 [History] Metoprolol Tartrate 25 mg PO TID 01/06/24 [History] Pantoprazole [Protonix] 40 mg PO DAILY 01/06/24 [History] Follow up Appointment(s)/Referral(s): [facility], [NON-STAFF] - As Needed Jeannie Floyd MD [REFERRING] - 1 Week (The office will call to schedule a follow-up appointment. ) Alexander Bal DO [Primary Care Provider] - 01/08/24 1:00 pm Patient Instructions/Handouts: Weakness (DC) Discharge Disposition: HOME WITH HOME HEALTH SERVICES
== END 2024-01-06 15:19 | disposition home health service (06) | DRG 57 ==
LOC: EC 17:06 → EEVIPCON 19:50 → 5NMEDONC 19:50 → OBSVTOIN 19:51 → 5NMEDONC 21:03 → UNDODISIN 01-02 16:27
PROVIDERS: ADMIT Hospitalist; ATTEND Hospitalist
DX: G70.00 Myasthenia gravis without (acute) exacerbation (principal); N39.0 Urinary tract infection, site not specified; Z91.148 Patient's other noncompliance with medication regimen for other reason; J45.909 Unspecified asthma, uncomplicated; R53.1 Weakness; E06.3 Autoimmune thyroiditis; L98.9 Disorder of the skin and subcutaneous tissue, unspecified; R32 Unspecified urinary incontinence; D86.9 Sarcoidosis, unspecified; M32.9 Systemic lupus erythematosus, unspecified; F32.A Depression, unspecified; F41.9 Anxiety disorder, unspecified; Z79.01 Long term (current) use of anticoagulants; Z79.02 Long term (current) use of antithrombotics/antiplatelets; Z79.51 Long term (current) use of inhaled steroids; Z79.890 Hormone replacement therapy; Z87.440 Personal history of urinary (tract) infections; Z82.49 Family history of ischemic heart disease and other diseases of the circulatory system; Z91.81 History of falling
CPT/HCPCS: 36415; 71046; 80048; 80053; 81001; 83605; 84484; 85025; 85610; 85730; 93005; 94640; 96360; 99285